=== PATIENT | female | born 1995 | race Hispanic/Latino ===

== ENCOUNTER 2019-09-27 10:23 | Emergency (ER) | payer OTHER, SELFPAY ==
[2019-09-27 10:49] VITALS: BP 105/52; PULSE 65; RESP 16; TEMP 36.8; O2SAT 99
--- NOTE | 2019-09-27 11:04 | ED.GENADULT ---
HPI - General Adult General Chief complaint: Wound/Laceration Stated complaint: tick bite History of Present Illness HPI narrative: Patient states she was bit by a tick last night her pulled it out but today is is red and swollen and it looks like there may a piece still in her . Patient states she did not want to go to the hosptial Related Data Allergies Allergy/AdvReac Type Severity Reaction Status Date / Time No Known Allergies Allergy Unverified 03/31/16 14:43 Review of Systems Review of Systems: Narrative: CONSTITUTIONAL: Denies fever, chills, or sweats. EYES: Denies visual changes, redness, or discharge. ENT: Denies rhinorrhea, congestion, sore throat, or otalgia. CARDIOVASCULAR:Denies chest pain, palpitations, or edema. RESPIRATORY: Denies cough or dyspnea. GASTROINTESTINAL: Denies abdominal pain, nausea, vomiting, or diarrhea. GENITOURINARY: Denies dysuria or hematuria. SKIN:[Denies rash or itching.tick bite right leg MUSCULOSKELETAL:Denies back pain, joint pain, or myalgia. NEUROLOGIC: Denies headache, numbness, or weakness. PSYCHIATRIC:Denies anxiety or depression PMFSH Comments At time as signature, I have reviewed and agree with nursing past medical, social, surgical and family history. Please see nursing chart for further information. There is no relevant family history pertinent to the presenting complaint. Exam Narrative: Exam Narrative: GENERAL:Well-appearing, well-nourished, and in no acute distress. HEAD:Normocephalic, atraumatic. EYES: PERRLA and EOMI. ENT: Nares clear, no rhinorrhea or epistaxis. Mucous membranes moist. NECK: Supple. CHEST: Clear to auscultation. No respiratory distress. HEART: Regular rate and rhythm. No murmur heard. Normal peripheral pulses. ABDOMEN: Soft, nontender, nondistended, normal active bowel sounds. EXTREMITIES: Normal range of motion. No edema. right calf area with red erythema area with a minute open area that is starting to get hard. SKIN: Warm, dry, no rash. NEURO: No focal deficits. Alert and oriented x3. Course Vital Signs Vital signs: Vital Signs Temperature 98.3 F 09/27/19 10:49 Pulse Rate 65 09/27/19 10:49 Respiratory Rate 16 09/27/19 10:49 Blood Pressure 105/52 L 09/27/19 10:49 Pulse Oximetry 99 09/27/19 10:49 Temperature 98.3 F 09/27/19 10:49 Pulse Rate 65 09/27/19 10:49 Respiratory Rate 16 09/27/19 10:49 Blood Pressure 105/52 L 09/27/19 10:49 Pulse Oximetry 99 09/27/19 10:49 Medical Decision Making Differential Diagnosis Differential Diagnosis: Tick bite, lyme disease, malaise and fatigue Vital Signs Vital Signs: Vital Signs Temperature 98.3 F 09/27/19 10:49 Pulse Rate 65 09/27/19 10:49 Respiratory Rate 16 09/27/19 10:49 Blood Pressure 105/52 L 09/27/19 10:49 Pulse Oximetry 99 09/27/19 10:49 Temperature 98.3 F 09/27/19 10:49 Pulse Rate 65 09/27/19 10:49 Respiratory Rate 16 09/27/19 10:49 Blood Pressure 105/52 L 09/27/19 10:49 Pulse Oximetry 99 09/27/19 10:49 Discharge Plan Discharge Clinical Impression: Tick bite Qualifiers: Encounter type: initial encounter Qualified Code(s): W57.XXXA - Bitten or stung by nonvenomous insect and other nonvenomous arthropods, initial encounter Patient Disposition: Home, Self-Care Condition: Stable Instructions: Antibiotic Form, Doxycycline (By mouth), Tick Bite (ED) Prescriptions: New doxycycline hyclate 100 mg capsule 100 mg PO BID 10 Days Qty: 20 RF: 0 Follow-up/Referrals: UNKNOWN,DOCTOR [Primary Care Provider] - Time of Disposition: 11:16
== END 2019-09-27 11:20 | disposition home or self-care (01) ==
PROVIDERS: Emergency Provider Nurse Practitioner Family
DX: S81.851A Open bite, right lower leg, initial encounter (principal); Z86.2 Personal history of diseases of the blood and blood-forming organs and certain disorders involving the immune mechanism; W57.XXXA Bitten or stung by nonvenomous insect and other nonvenomous arthropods, initial encounter
CPT/HCPCS: 99213; G0463

== ENCOUNTER 2020-08-06 10:27 | Outpatient (RCR) | payer SELFPAY ==
[2020-08-06 06:53] LABS: Rapid Plasma Reagin Non-Reactive (NonReactive)
== END 2020-11-01 23:59 | disposition home or self-care (01) ==
LOC: ANHLAB 10:27
PROVIDERS: Visit Provider Obstetrics & Gynecology
DX: Z32.01 Encounter for pregnancy test, result positive (principal)
CPT/HCPCS: 36415; 84702; 86592

== ENCOUNTER 2020-08-07 09:16 | Emergency (ER) | payer OTHER, SELFPAY ==
--- NOTE | ~2020-08-07 | US_ITS ---
EXAMINATION: US OB <=14 wk fetus w TV EXAM DATE: 08/07/2020 10:22 INDICATION: , right pelvic pain. 1st trimester. TECHNIQUE: Pelvic obstetrical transabdominal and transvaginal sonogram was performed by a technologi . There are multiple grayscale and Doppler images available for interpretation. There are no pamella ier studies of this gestation for comparison. FINDINGS: Uterus measures 8.4 x 5.0 x 5.7 cm. There is an intrauterine cystic structure probably gest ation sac given thick wall likely decidual reaction. Shape of the cystic component is abnormal, due t o another smaller contiguous cystic structure which could be an abnormal yolk sac or small subchorion ic hematoma. Poor prognostic indicators for this . No pole identified. Mean sac diamet er of 1 cm corresponds to estimated gestational age 5 weeks 4 days. Both ovaries were identified and are morphologically normal, the left probably having a small hemorrh agic cyst. No extra uterine identified. IMPRESSION: Abnormal appearing intrauterine gestation sac and yolk sac, poor prognostic indicators f or this . Consider 1-2 week follow-up ultrasound. Reviewed, dictated and finalized at location B. E SHOW SPECIALIST IMPRESSION: Abnormal appearing intrauterine gestation sac and yolk sac, poor p rognostic indicators for this . Consider 1-2 week follow-up ultrasound .
[2020-08-07 09:20] VITALS: BP 101/66; PULSE 64; RESP 16; TEMP 36.6; O2SAT 97
--- NOTE | 2020-08-07 09:41 | ED.ABDPAIN ---
HPI - Abdominal Pain General Chief Complaint: Abdominal Pain Stated Complaint: abd pain Time Seen by Provider: 08/07/20 09:32 History of Present Illness HPI narrative: Recently found out she was pregnat. Developed RLQ pain over the past few days. Seen at [facility] yesterday and had an US reportedly showing an IUP. Today the pain is worse. She also has back pain radiating down the side of her right leg. This is associated with tingling in the same distribution. She called her OB and they told her to come in . Related Data Home Medications Medication Instructions Recorded Confirmed No Home Medications 08/07/20 08/07/20 Allergies Allergy/AdvReac Type Severity Reaction Status Date / Time No Known Allergies Allergy Verified 08/07/20 09:31 Review of Systems Review of Systems: All systems reviewed & are unremarkable except as noted in HPI and below Constitutional: Constitutional: Denies chills and Denies fever(s) Cardiovascular: Cardiovascular: Denies chest pain Respiratory: Respiratory: Denies dyspnea Gastrointestinal: Gastrointestinal: Reports abdominal pain, Denies constipation, Denies diarrhea, Denies nausea and Denies vomiting Genitourinary: Genitourinary: Denies abnormal vaginal bleeding, Denies hematuria, Denies dysuria and Denies vaginal discharge Neurologic: Denies dizziness, Reports numbness and Denies weakness COUNTS INCLUDE 234 BEDS AT THE [facility] Past Medical History Medical History (Updated 08/07/20 @ 18:39 by Kendall Parks MD) Healthy female adult Social History Social History (Updated 08/07/20 @ 18:39 by Kendall Parks MD) Smoking status: Never smoker Exam Const: General: healthy appearing, no acute distress and alert Orientation/consciousness: patient oriented x3 HENMT: Head: normal to inspection Neck: Neck: normal visual inspection and no lymphadenopathy Chest: Chest palpation & inspection: no tenderness Resp: Effort & Inspection: normal respiratory effort Auscultation: clear to auscultation bilaterally, no rales, no rhonchi and no wheezes Cardio: Jugular venous distension: no JVD Rate: regular rate Rhythm: regular rhythm Heart sounds: no murmurs GI: Inspection: non-distended GI Palp: Yes Soft to palpation and Yes Tenderness to palpation present (GI) (RLQ) Skin: General skin exam: normal color Neuro: General: patient oriented x3, moves all extremities, no focal motor deficits and CN's II-XI intact bilaterally Speech: normal speech Gait exam (Neuro): Normal gait present Extrem: General: no edema Psych: Appearance: well kempt Affect: normal affect Course Vital Signs Vital signs: Vital Signs Temperature 36.6 C 08/07/20 09:20 Pulse Rate 64 08/07/20 09:20 Respiratory Rate 16 08/07/20 09:20 Blood Pressure 101/66 08/07/20 09:20 Pulse Oximetry 97 08/07/20 09:20 Temperature 36.6 C 08/07/20 09:20 Pulse Rate 100 08/07/20 11:30 Respiratory Rate 16 08/07/20 11:30 Blood Pressure 110/72 08/07/20 11:30 Pulse Oximetry 100 08/07/20 11:30 MDM - Abdominal Pain MDM Narrative Medical decision making narrative: Abnormal appearance of IUP. Case discussed with Dr. Carbajal. He will see her in clinic today. Differential Diagnosis Differential diagnosis: Likely other (ruptured cyst, sciatica, ectopic) Medical Records Attestation: I reviewed the patient's medical records. Lab Data Attestation: I reviewed the patient's lab results. Result diagrams: 08/07/20 09:45 08/07/20 09:45 Labs: Lab Results 08/07/20 08/07/20 08/07/20 Range/Units 09:34 09:45 09:45 WBC 6.7 (4.5-10.0) K/mm3 RBC 4.72 (4.2-5.4) M/mm3 Hgb 13.6 (12.0-15.0) g/dL Hct 40.6 (37.0-47.0) % MCV 86.0 (80-100) fl MCH 28.8 (26-34) pg MCHC 33.5 (32-36) g/dl RDW 12.9 (11.5-14.5) % Plt Count 245 (150-375) k/mm3 MPV 11.3 H (7.4-10.4) fl Immature Gran % (Auto) 0.1 (0-0.5) % Neut % (Auto) 66.2 (45.5-73.1
[2020-08-07 09:59] LABS: Add Urine Microscopic? YES; Appearance Urine Clear (Clear); Bacteria Urine Trace /hpf; Bilirubin Urine Negative (Negative); Blood Urine Negative (Negative); Color Urine Yellow (Yellow); Glucose Urine UA Negative (Negative); Ketones Urine Negative (Negative); Leukocyte Esterase Ur Trace LEU/UL (Negative); Mucus Urine Rare /lpf; Nitrate Urine Negative (Negative); Protein Urine Negative (Negative); RBC Urine 0-2 /hpf (0-2); Specific Grav Ur 1.025 (1.001-1.035); Squamous Epithelial Cell Urine Many /hpf (Few); Urobilinogen Urine Negative mg/dL (<2.0); WBC Urine 0-3 /hpf
[2020-08-07 10:01] LABS: Basophils Percent Auto 0.4 % (0.2-1.2); Eosinophils Percent Auto 0.4 % (0-4.4); Hematocrit 40.6 % (37.0-47.0); Hemoglobin 13.6 g/dL (12.0-15.0); Immature Granulocyte Absolute 0.01 K/mm3 (0.00-0.031); Immature Granulocyte Percent A 0.1 % (0-0.5); Lymphocytes Absolute Auto 1.78 K/mm3 (0.9-3.2); Lymphocytes Percent Auto 26.5 % (18.3-44.2); Mean Corpuscular HGB Conc 33.5 g/dl (32-36); Mean Corpuscular Hemoglobin 28.8 pg (26-34); Mean Platelet Volume 11.3 fl (7.4-10.4); Monocytes Absolute Auto 0.4 K/mm3 (0.1-0.6); Monocytes Percent Auto 6.4 % (2.6-8.5); Neutrophils Absolute Auto 4.4 K/mm3 (1.3-6.7); Neutrophils Percent Auto 66.2 % (45.5-73.1); Platelet Count Result 245 k/mm3 (150-375); Red Blood Count 4.72 M/mm3 (4.2-5.4); Red Cell Distribution Width 12.9 % (11.5-14.5); White Blood Count 6.7 K/mm3 (4.5-10.0)
[2020-08-07 10:14] LABS: Alanine Aminotransferase 15 U/L (4-35); Albumin Level 4.3 g/dL (3.5-5.1); Alkaline Phosphatase 50 U/L (38-126); Anion Gap 8 mmol/L (8-16); Aspartate Amino Transferase 24 U/L (14-36); Bilirubin,Total 0.3 mg/dL (0.2-1.3); Blood Urea Nitrogen 8 mg/dL (7-17); Calcium 8.7 mg/dL (8.4-10.2); Carbon Dioxide 25 mmol/L (22-30); Chloride 103 mmol/L (98-107); Estimated Glomerular Filt Rate > 60; Glucose 93 mg/dL (65-105); Lipase 79 U/L (23-300); Potassium 3.7 mmol/L (3.4-5.0); Sodium 136 mmol/L (137-145)
[2020-08-07 11:30] VITALS: BP 110/72; PULSE 100; RESP 16; O2SAT 100
== END 2020-08-07 11:30 | disposition home or self-care (01) ==
PROVIDERS: Emergency Provider Emergency Medicine
DX: O26.891 Other specified pregnancy related conditions, first trimester (principal); R10.31 Right lower quadrant pain; O99.891 Other specified diseases and conditions complicating pregnancy; M54.31 Sciatica, right side; Z3A.01 Less than 8 weeks gestation of pregnancy
CPT/HCPCS: 36415; 76801; 76817; 80053; 81001; 83690; 84702; 85025; 99284

== ENCOUNTER → 2020-09-05 02:08 | Outpatient (CLI) | payer OTHER, SELFPAY ==
[2020-09-05 20:23] LABS: SARS-CoV-2 RNA PCR Negative
== END ==
PROVIDERS: Visit Provider Obstetrics & Gynecology
DX: Z01.812 Encounter for preprocedural laboratory examination (principal); Z20.822 Contact with and (suspected) exposure to COVID-19
CPT/HCPCS: C9803; U0003; U0005

== ENCOUNTER 2020-09-08 01:55 | Day surgery (SDC) | payer OTHER, SELFPAY ==
[2020-09-04 09:49] VITALS: BMI 22.2
[2020-09-08 06:54] VITALS: BP 92/53; PULSE 56; RESP 18; TEMP 36.7; O2SAT 100
[2020-09-08] MEDS: ACETAMINOPHEN 500 MG TABLET 1000 MG PO (07:00)
--- NOTE | 2020-09-08 07:03 | WPDANESEPPF ---
Anes - Initial Pre Proc Eval Procedure: Operation Date: 09/08/20 07:30 Proposed Procedures p Suction Dilatation and Curettage - Carol Carbajal MD Date/Time: 09/08/20 07:04 Surgeon: Carol Carbajal MD Pre Op Diagnosis: missed AB Patient Data Age: 25 Gender: F Height: 4 ft 11 in Weight: 50.5 kg Last Vital Signs Temp 98.1 F 09/08/20 06:54 Pulse 56 L 09/08/20 06:54 Resp 18 09/08/20 06:54 BP 92/53 L 09/08/20 06:54 Pulse Ox 100 09/08/20 06:54 Allergies Allergy/AdvReac Type Severity Reaction Status Date / Time No Known Allergies Allergy Verified 09/08/20 06:59 Home Medications Medication Instructions Recorded Confirmed Type ferrous sulfate [iron] 325 mg PO DAILY 09/04/20 09/08/20 History Patient hx anesthesia problems: none Family hx anesthesia problems: none [facility] Past Medical History Medical History (Updated 08/08/20 @ 00:00 by Pippa Reese) Healthy female adult Social History Social History (Updated 08/07/20 @ 18:39 by Kendall Parks MD) Smoking status: Never smoker Alcohol intake: never Substance use: never Substance use type: does not use Living arrangements: with family Spiritual care concerns: No Anes - Eval Final PreProcedure Day of Procedure 09/08/20 07:04 Patient weight: normal Heart: regular rate and rhythm Lungs: clear to auscultation Airway: Mallampati scale class II Neurological: alert and oriented Last oral intake: >/= 8 hours ASA classification: I Emergent: no Anesthetic plan: proceed Anesthesia type and monitoring: general GIVS and standard monitoring Informed Consent: The patient's anesthetic plan and its attendant risks and benefits were discussed with the patient/family/POA. Questions were solicited and answers provided to the satisfaction of the patient/family/POA.
[2020-09-08] MEDS: LACTATED RINGERS 1,000 ML 30 ML IV CONT (07:19)
--- NOTE | 2020-09-08 07:24 | WPDHPUPDATE1 ---
History and Physical Update Update Date/Time: 09/08/20 07:24 History and Physical has been reviewed, including an updated exam of the patient. There are NO changes in the patient's condition. Risks, benefits, and alternatives have been discussed and questions answered. Patient agrees to proceed with procedure.
[2020-09-08] MEDS: KETOROLAC 30 MG/ML VIAL (*BKC) IV PUSH (07:48)
[2020-09-08 07:53] VITALS: BP 101/66; PULSE 61; RESP 12; O2SAT 99
--- NOTE | 2020-09-08 07:53 | P.OP_ITS ---
Procedure Note - Detailed Date of procedure: 09/08/20 Pre-op diagnosis: missed AB Post-op diagnosis: same Procedure performed: Suction D&C Description of procedure: The patient was taken the operating room. She has prepped and draped in dorsal lithotomy position after induction of mac anesthesia. A speculum was placed in the vagina. The cervix was grasped with a tenaculum. The cervix was injected at 3 and 9:00 a.m. with 1% lidocaine. The cervix was dilated up to 8 mm using Parsons dilators. An 8 curved plastic suction curette was then applied to the intrauterine cavity. All of the surfaces in the intrauterine cavity were curettage under VAC. A sharp medium-size curette was then used to curettage all the surfaces to confirmed the removal of all the products conception. When all surfaces for bleed to be clean the curette was r emoved. The suction curette was then reapplied to remove all the debris. The procedure was terminated. The tenaculum was removed. The speculum was removed. The patient tolerated the procedure well. She was taken recovery room in stable condition. Anesthesia: MAC Surgeon: Carol Carbajal MD Estimated blood loss (mL): 25 Drains: No Packing: No Pathology: yes Complications: No immediate complications Condition: stable Disposition: PACU Findings: Normal vulva vagina and cervix. The moderate amounts of products conception. 8 cm uterus.
[2020-09-08 08:15] VITALS: BP 100/70; PULSE 68; RESP 20
--- NOTE | 2020-09-08 08:23 | SUR.PHASEII ---
0823 - pt's blood type noted. A positive
[2020-09-08 08:45] VITALS: BP 100/65; PULSE 50; RESP 20
== END 2020-09-08 08:50 | disposition home or self-care (01) ==
PROVIDERS: Visit Provider Obstetrics & Gynecology
PROC: (CPT 59820; principal; 2020-09-08 07:30)
DX: O02.1 Missed abortion (principal)
CPT/HCPCS: 59820; 36415; 85461; 88305; A9270; J1885; J2250; J2704; J7120

== ENCOUNTER 2020-09-17 13:45 | Emergency (ER) | payer OTHER, SELFPAY ==
--- NOTE | ~2020-09-17 | US_ITS ---
EXAMINATION: US venous doppler UE EXAM DATE: 09/17/2020 15:23 INDICATION: Left upper extremity swelling and bruising. TECHNIQUE: Multiple grayscale, color flow, Doppler sonographic images of the left upper extremity vei ns obtained by technologist. Compression was performed where able. There is no prior study for lynda jessica. FINDINGS: Left upper extremity: Jugular vein: ------------> Normal. Subclavian vein: --------> Normal. Axillary vein:------------> Normal. Brachial vein:-----------> Normal. Basilic vein: ------------> Normal. Cephalic vein: ----------> Normal. Radial vein: ------------> Normal. Ulnar vein: > Normal. IMPRESSION: No deep venous thrombosis of the left upper extremity. Reviewed, dictated and finalized at location A.
--- NOTE | ~2020-09-17 | XR_ITS ---
EXAMINATION: XR chest 1V portable EXAM DATE: 09/17/2020 16:06 INDICATION: IV site discolored, left arm and left-sided face numbness for a week. TECHNIQUE: Portable AP frontal chest x-ray was obtained. Comparison is made to prior examination from 05/21/2015. FINDINGS: The lungs are clear. There are no pleural effusions. Cardiomediastinal silhouette is norm al. There is no pneumothorax suspected. The bones and soft tissues are unremarkable. IMPRESSION: Normal chest x-ray exam. Reviewed, dictated and finalized at location A. IMPRESSION: Normal chest x-ray exam.
--- NOTE | ~2020-09-17 | CT_ITS ---
EXAMINATION: CT brain wo con INDICATION: Headache, facial numbness, dizziness COMPARISON: 05/21/2015 TECHNIQUE: Standard unenhanced head CT. The dose-length product (DLP) was 605.33 mGy-cm. The mA was a djusted according to patient size. Iterative reconstruction technique was employed. FINDINGS: There is no intracranial hemorrhage, acute infarction, or abnormal mass lesion. The ventric les are normal. There is no abnormal mass effect or midline shift. The julio-white matter differentiat ion is normal. The basal cisterns are patent. The orbits are normal. The paranasal sinuses, mastoids and calvarium are normal. IMPRESSION: 1. No acute intracranial abnormality. Reviewed, dictated and finalized at location A.
[2020-09-17 14:06] VITALS: BP 101/76; PULSE 62; RESP 18; TEMP 36.9; O2SAT 100
--- NOTE | 2020-09-17 14:48 | ECG_ITS ---
Measurements Intervals [place] Rate: 53 P: 45 IA: 140 QRS: 35 QRSD: 77 T: 17 QT: 405 QTc: 383 Interpretive Statements SINUS BRADYCARDIA BASELINE ARTIFACT- III BORDERLINE ECG Electronically Signed On 09-17-2020 15:40:51 CDT by Pedro Madrid D.O.
--- NOTE | 2020-09-17 15:35 | PC.NURSE ---
Pt to imaging at this time
--- NOTE | 2020-09-17 15:35 | ED.GENADULT ---
HPI - General Adult General Chief complaint: Skin/Abscess/Foreign Body Stated complaint: IV site and facial swelling after DNC Time Seen by Provider: 09/17/20 13:47 Source: patient Mode of arrival: ambulatory Limitations: no limitations History of Present Illness HPI narrative: Patient is a 25-year-old female who presents to emergency department for evaluation of left arm bruising where she had had an IV placed several days earlier for a D&C performed at [facility]. Patient on arrival also notes today she felt heaviness in the left side of the face. Patient on arrival is in no distress denies vaginal discharge bleeding fever chills chest pain. Patient notes she has had some mild dyspnea shortness of breath over the course of the last day. Patient denies URI symptoms. On arrival patient does not appear uncomfortable or in distress and is resting comfortably in the room Related Data Allergies Allergy/AdvReac Type Severity Reaction Status Date / Time No Known Allergies Allergy Verified 09/08/20 06:59 Review of Systems Review of Systems: All systems reviewed & are unremarkable except as noted in HPI and below PMFSH Past Medical History Medical History (Updated 09/17/20 @ 17:10 by Elmer Santana PA-C) Healthy female adult Surgical History Surgical History (Updated 09/17/20 @ 15:37 by Elmer Santana PA-C) H/O dilation and curettage Social History Social History Smoking status: Never smoker Alcohol intake: never Substance use: never Substance use type: does not use Spiritual care concerns: No Exam Narrative: Exam Narrative: GENERAL: Well-appearing, well-nourished, and in no acute distress. HEAD: Normocephalic, atraumatic. EYES: PERRLA and EOMI. ENT: Nares clear, no rhinorrhea or epistaxis. Mucous membranes moist. NECK: Supple. No adenopathy or masses. No carotid bruits or JVD CHEST: Clear to auscultation. No respiratory distress. No wheezes rales or rhonchi HEART: Regular rate and rhythm. No murmur heard. Normal peripheral pulses. ABDOMEN: Soft, nontender, nondistended, EXTREMITIES: Normal range of motion. No edema. SKIN: Warm, dry, no rash. NEURO: No focal deficits. Alert and oriented x3. Cranial nerves II through XII grossly intact. Normal speech and gait. Cerebellar intact PSYCH: Normal mood and affect. Course Course Emergency Course: Patient evaluated in the emergency department for multiple complaints none of which have resulted in anything significant patient will be discharged home at this time hemodynamically stable ABCs and vital signs intact and stable patient will be referred back to her specialist and primary care for further evaluation of her complaints patient was made aware of the findings in her evaluation and agrees to follow-up as instructed and was also given a plan to return and provided with reasons to return and agrees with this Vital Signs Vital signs: Vital Signs Temperature 98.4 F 09/17/20 14:06 Pulse Rate 62 09/17/20 14:06 Respiratory Rate 18 09/17/20 14:06 Blood Pressure 101/76 09/17/20 14:06 Pulse Oximetry 100 09/17/20 14:06 Temperature 98.4 F 09/17/20 14:06 Pulse Rate 77 09/17/20 16:01 Respiratory Rate 21 H 09/17/20 16:01 Blood Pressure 111/71 09/17/20 16:01 Pulse Oximetry 100 09/17/20 16:01 Medical Decision Making Vital Signs Vital Signs: Vital Signs Temperature 98.4 F 09/17/20 14:06 Pulse Rate 62 09/17/20 14:06 Respiratory Rate 18 09/17/20 14:06 Blood Pressure 101/76 09/17/20 14:06 Pulse Oximetry 100 09/17/20 14:06 Temperature 98.4 F 09/17/20 14:06 Pulse Rate 77 09/17/20 16:01 Respiratory Rate 21 H 09/17/20 16:01 Blood Pressure 111/71 09/17/20 16:01 Pulse Oximetry 100 09/17/20 16:01 Lab Data Result diagrams: 09/17/20 15:41 09/17/20 15:41 Labs: Lab Results 09/17/20 09/17/20 0
[2020-09-17 15:50] LABS: Add Urine Microscopic? YES; Appearance Urine Cloudy (Clear); Bilirubin Urine Negative (Negative); Blood Urine Negative (Negative); Color Urine Yellow (Yellow); Glucose Urine UA Negative (Negative); Ketones Urine Negative (Negative); Leukocyte Esterase Ur Negative LEU/UL (Negative); Mucus Urine Rare /lpf; Nitrate Urine Negative (Negative); Protein Urine Negative (Negative); RBC Urine 0-2 /hpf (0-2); Specific Grav Ur 1.017 (1.001-1.035); Squamous Epithelial Cell Urine Rare /hpf (Few); Urobilinogen Urine Negative mg/dL (<2.0); WBC Urine 0-3 /hpf
[2020-09-17 16:01] VITALS: BP 111/71; PULSE 77; RESP 21; O2SAT 100
[2020-09-17 16:14] LABS: Basophils Percent Auto 0.5 % (0.2-1.2); Eosinophils Absolute Auto 0.1 K/mm3 (0-0.3); Hematocrit 42.9 % (37.0-47.0); Hemoglobin 14.5 g/dL (12.0-15.0); Immature Granulocyte Absolute 0.02 K/mm3 (0.00-0.031); Immature Granulocyte Percent A 0.2 % (0-0.5); Lymphocytes Absolute Auto 2.09 K/mm3 (0.9-3.2); Lymphocytes Percent Auto 25.8 % (18.3-44.2); Mean Corpuscular HGB Conc 33.8 g/dl (32-36); Mean Corpuscular Hemoglobin 29.1 pg (26-34); Mean Corpuscular Volume 86.1 fl (80-100); Mean Platelet Volume 11.7 fl (7.4-10.4); Monocytes Absolute Auto 0.4 K/mm3 (0.1-0.6); Monocytes Percent Auto 5.3 % (2.6-8.5); Neutrophils Absolute Auto 5.4 K/mm3 (1.3-6.7); Neutrophils Percent Auto 67.2 % (45.5-73.1); Platelet Count Result 243 k/mm3 (150-375); Red Blood Count 4.98 M/mm3 (4.2-5.4); White Blood Count 8.1 K/mm3 (4.5-10.0)
[2020-09-17 16:17] VITALS: BP 107/86; PULSE 64; RESP 19; O2SAT 100
[2020-09-17 16:26] LABS: INR 0.9; Prothrombin Time 12.8 Seconds (11.1-14.7)
[2020-09-17 16:27] LABS: Partial Thromboplastin Time 26.3 SECONDS (22.3-36.8)
[2020-09-17 16:30] LABS: Anion Gap 10 mmol/L (8-16); Blood Urea Nitrogen 14 mg/dL (7-17); Calcium 9.5 mg/dL (8.4-10.2); Carbon Dioxide 26 mmol/L (22-30); Chloride 102 mmol/L (98-107); Estimated Glomerular Filt Rate > 60; Glucose 78 mg/dL (65-105); Potassium 3.9 mmol/L (3.4-5.0); Sodium 138 mmol/L (137-145)
[2020-09-17 16:42] LABS: Troponin I < 0.012 ng/mL (0.000-0.034)
[2020-09-17 17:01] VITALS: BP 110/77; PULSE 61; RESP 18; O2SAT 100
[2020-09-17 17:15] VITALS: BP 101/81; PULSE 65; RESP 19; O2SAT 92
[2020-09-17 17:18] VITALS: BP 101/81; PULSE 77; RESP 18; O2SAT 95
== END 2020-09-17 17:18 | disposition home or self-care (01) ==
PROVIDERS: Emergency Medicine Emergency Medical Services; Emergency Provider Emergency Medicine; PCP Obstetrics & Gynecology
DX: R06.02 Shortness of breath (principal); M79.602 Pain in left arm; R51.9 Headache, unspecified; R00.1 Bradycardia, unspecified; Z98.890 Other specified postprocedural states
CPT/HCPCS: 36415; 70450; 71045; 80048; 81001; 81025; 84484; 85025; 85610; 85730; 93005; 93971; 99284

== ENCOUNTER 2020-12-29 10:18 | Outpatient (CLI) | payer OTHER, SELFPAY ==
[2020-12-29 11:20] LABS: Beta HCG Quantitative < 2.39 mIU/ML
== END 2020-12-29 10:19 | disposition home or self-care (01) ==
LOC: ANHLAB 10:23
PROVIDERS: PCP Obstetrics & Gynecology; Visit Provider Obstetrics & Gynecology
DX: N91.2 Amenorrhea, unspecified (principal)
CPT/HCPCS: 36415; 84702

== ENCOUNTER 2021-05-12 12:54 | Outpatient (CLI) | payer OTHER, SELFPAY | END 2021-05-12 12:55 | disposition home or self-care (01) | PROVIDERS: PCP Obstetrics & Gynecology; Visit Provider Obstetrics & Gynecology | DX: Z32.01 Encounter for pregnancy test, result positive (principal); Z3A.00 Weeks of gestation of pregnancy not specified | CPT/HCPCS: 36415; 84702 ==

== ENCOUNTER 2021-05-21 11:28 | Emergency (ER) | payer OTHER, SELFPAY ==
[2021-05-21] VITALS (7 sets, daily range): BP systolic 86–111; BP diastolic 52–67; PULSE 62–101; RESP 16–18; TEMP 36.4–36.6; O2SAT 98–100
--- NOTE | ~2021-05-21 | US_ITS ---
EXAMINATION: US OB <=14 wk fetus w TV DATE: 05/21/2021 14:00 INDICATION: Ulceration of bleeding during first trimester TECHNIQUE: Real-time pelvic ultrasound utilizing both a transvaginal and transabdominal probe was pe rformed. The interpreting radiologist was not present for the study. COMPARISON: None. FINDINGS: The uterus measures 9.0 x 5.5 x 5.0 cm. There is a 2.3 x 2.5 x 0.8 cm endometrial fluid collection a t the funduswithout evidence of yolk sac or pole. The right ovary measures 2.7 x 2.9 x 1.9 cm. The left ovary measures 1.9 x 1.9 x 1.7 cm. After flow w ith arterial waveforms identified in both ovaries. No abnormal adnexal masses identified. There is no free fluid in the pelvis. IMPRESSION: 1. 2.3 x 2.5 x 0.8 cm endometrial fluid collection without evident yolk sac or pole. Differenti al remains early , failed or less likely ectopic . Recommend follow-up wi th serial beta-hCG levels with repeat imaging as clinically indicated. Reviewed, dictated and finalized at location B. N RESOURCES OPERATIONS DIRECTOR IMPRESSION: 1. 2.3 x 2.5 x 0.8 cm endometrial fluid collection without evident yolk sac or pole. Differential remains early , failed or less like ly ectopic . Recommend follow-up with serial beta-hCG levels with repe at imaging as clinically indicated.
--- NOTE | 2021-05-21 13:04 | PC.NURSE ---
Pt urinating at this time.
[2021-05-21 13:21] LABS: Add Urine Microscopic? YES; Appearance Urine Clear (Clear); Bilirubin Urine Negative (Negative); Blood Urine Negative (Negative); Color Urine Yellow (Yellow); Glucose Urine UA Negative (Negative); Ketones Urine Trace mg/dL (Negative); Leukocyte Esterase Ur Negative LEU/UL (Negative); Mucus Urine Rare /lpf; Nitrate Urine Negative (Negative); Protein Urine Negative (Negative); RBC Urine 0-2 /hpf (0-2); Squamous Epithelial Cell Urine Moderate /hpf (Few); Urobilinogen Urine Negative mg/dL (<2.0); WBC Urine 0-3 /hpf
--- NOTE | 2021-05-21 13:32 | ED.FEMALEGU ---
HPI - Female Genitourinary General Chief complaint: Vaginal Bleeding Stated complaint: vag bleed in Time Seen by Provider: 05/21/21 12:54 Source: patient Mode of arrival: ambulatory Limitations: no limitations History of Present Illness HPI Narrative: This is a 25-year-old , about 6 weeks that presents to the emergency department for vaginal bleeding. Associated with pelvic cramping. Reports she has had ultrasound in the last couple of days that showed a yolk sac, but no pole. Reports her bleeding worsened today and was associated with cramping which prompted her to be seen again. Her OB is Dr. Carbajal. Denies fever, vomiting, or dysuria. Related Data Allergies Allergy/AdvReac Type Severity Reaction Status Date / Time No Known Allergies Allergy Verified 05/21/21 12:56 Review of Systems Review of Systems: CONSTITUTIONAL: Denies fever GASTROINTESTINAL: Denies vomiting GENITOURINARY: Denies dysuria or hematuria. All systems reviewed & are unremarkable except as noted in HPI and below PMFSH Past Medical History Medical History (Updated 05/21/21 @ 18:35 by Namita Carty PA-C) Healthy female adult Surgical History Surgical History (System 02/10/21 @ 16:02 by Dianelys Begum) H/O dilation and curettage Social History Social History (System 02/10/21 @ 16:02 by Dianelys Begum) Smoking status: Never smoker Alcohol intake: never Substance use: never Substance use type: does not use Spiritual care concerns: No Exam Narrative: GENERAL: Well-appearing, well-nourished, and in no acute distress. HEAD: Normocephalic, atraumatic. EYES: EOMI. CHEST: Clear to auscultation. No respiratory distress. No wheezes rales or rhonchi HEART: Regular rate and rhythm. No murmur heard. Normal peripheral pulses. ABDOMEN: Soft, nontender, nondistended, normal active bowel sounds. No CVA tenderness EXTREMITIES: Normal range of motion. No edema. SKIN: Warm, dry, no rash. NEURO: No focal deficits. Alert and oriented x3. PSYCH: Normal mood and affect Course Consultations Consultation #1: Spoke with Dr. Carbajal about patient and work-up who will follow up in clinic. Date: 05/21/21 Vital Signs Vital signs: Vital Signs Temperature 97.6 F 05/21/21 11:57 Pulse Rate 80 05/21/21 11:57 Respiratory Rate 16 05/21/21 11:57 Blood Pressure 111/58 L 05/21/21 11:57 Pulse Oximetry 98 05/21/21 11:57 Temperature 97.9 F 05/21/21 18:19 Pulse Rate 71 05/21/21 18:19 Respiratory Rate 18 05/21/21 18:19 Blood Pressure 94/59 L 05/21/21 18:19 Pulse Oximetry 99 05/21/21 18:19 MDM - Female Genitourinary MDM Narrative Medical decision making narrative: Patient presents to the emergency department for vaginal bleeding, about 6 weeks by LMP. Patient orthostatic upon arrival, this improved with 2L IV fluid administration. Patient is no longer lightheaded. Hemoglobin is 12.4. Metabolic panel without concerning findings. UA without evidence of infection. Patient is A+. No concerning bleeding noted on exam. Obstetric ultrasound shows a 2.3 x 2.5 x 0.8 cm endometrial fluid collection without evident yolk sac or pole. Recommend follow-up with serial beta hCG and imaging. No abnormal adnexal masses. No free fluid in the pelvis. Spoke with Dr. Carbajal about patient and work-up who will follow up in clinic. Patient is stable and felt appropriate for further outpatient evaluation. She was given warnings to return to the ER Lab Data Attestation: I reviewed the patient's lab results. Result diagrams: 05/21/21 13:22 05/21/21 13:22 Labs: Lab Results 05/21/21 05/21/21 05/21/21 Range/Units 13:09 13:22 13:22 WBC 7.7 (4.5-10.0) K/mm3 RBC 4.21 (4.2-5.4) M/mm3 Hgb 12.4 (12.0-15.0) g/dL Hct 36.6 L (37.0-47.0) % MCV 86.9 (80-100) fl MCH 29.5 (26-34) pg MCHC 33.9 (32-36) g/dl RDW 13.2 (11.5-14.5) % Plt Co
[2021-05-21 13:33] LABS: Basophils Percent Auto 0.4 % (0.2-1.2); Eosinophils Percent Auto 0.5 % (0-4.4); Hematocrit 36.6 % (37.0-47.0); Hemoglobin 12.4 g/dL (12.0-15.0); Immature Granulocyte Absolute 0.03 K/mm3 (0.00-0.031); Immature Granulocyte Percent A 0.4 % (0-0.5); Lymphocytes Percent Auto 20.7 % (18.3-44.2); Mean Corpuscular HGB Conc 33.9 g/dl (32-36); Mean Corpuscular Hemoglobin 29.5 pg (26-34); Mean Corpuscular Volume 86.9 fl (80-100); Monocytes Absolute Auto 0.4 K/mm3 (0.1-0.6); Monocytes Percent Auto 4.7 % (2.6-8.5); Neutrophils Absolute Auto 5.7 K/mm3 (1.3-6.7); Neutrophils Percent Auto 73.3 % (45.5-73.1); Platelet Count Result 221 k/mm3 (150-375); Red Blood Count 4.21 M/mm3 (4.2-5.4); Red Cell Distribution Width 13.2 % (11.5-14.5); White Blood Count 7.7 K/mm3 (4.5-10.0)
--- NOTE | 2021-05-21 13:37 | PC.NURSE ---
[facility]
[2021-05-21 13:44] LABS: Prothrombin Time 12.9 Seconds (11.1-14.7)
[2021-05-21 13:45] LABS: Alanine Aminotransferase 17 U/L (4-35); Albumin Level 4.4 g/dL (3.5-5.1); Alkaline Phosphatase 49 U/L (38-126); Anion Gap 9 mmol/L (8-16); Aspartate Amino Transferase 23 U/L (14-36); Bilirubin,Total 0.6 mg/dL (0.2-1.3); Blood Urea Nitrogen 10 mg/dL (7-17); Calcium 9.2 mg/dL (8.4-10.2); Carbon Dioxide 24 mmol/L (22-30); Chloride 101 mmol/L (98-107); Estimated Glomerular Filt Rate > 60; Glucose 116 mg/dL (65-110); Partial Thromboplastin Time 25.3 SECONDS (22.3-36.8); Potassium 3.4 mmol/L (3.4-5.0); Sodium 134 mmol/L (137-145)
[2021-05-21] MEDS: SODIUM CHLORIDE 0.9% IV 1,000 ML 999 ML IV CONT ×2 (14:16→16:06)
--- NOTE | 2021-05-21 14:54 | PC.NURSE ---
Clarified with blood bank and SARAH Breaux. No need for Rhogam at this time. Blood bank to cancel order.
== END 2021-05-21 18:59 | disposition home or self-care (01) ==
PROVIDERS: Physician Assistant; Emergency Provider Emergency Medicine
DX: O20.0 Threatened abortion (principal); Z3A.01 Less than 8 weeks gestation of pregnancy
CPT/HCPCS: 36415; 76801; 76817; 80053; 81001; 81025; 84702; 85025; 85461; 85610; 85730; 96360; 96361; 99284; J7030

== ENCOUNTER 2021-05-24 16:56 | Outpatient (RCR) | payer OTHER, SELFPAY | END 2021-08-12 23:59 | disposition home or self-care (01) | LOC: ANHLAB 16:56 | PROVIDERS: PCP Obstetrics & Gynecology; Visit Provider Obstetrics & Gynecology | DX: Z32.01 Encounter for pregnancy test, result positive (principal) | CPT/HCPCS: 36415; 84702 ==

== ENCOUNTER 2021-05-24 16:59 | Outpatient (CLI) | payer OTHER, SELFPAY | END 2021-05-24 17:00 | disposition home or self-care (01) | PROVIDERS: Visit Provider Obstetrics & Gynecology | DX: O20.0 Threatened abortion (principal); Z3A.00 Weeks of gestation of pregnancy not specified | CPT/HCPCS: 36415; 84702 ==

== ENCOUNTER 2021-07-22 10:49 | Emergency (ER) | payer OTHER, SELFPAY ==
--- NOTE | ~2021-07-22 | US_ITS ---
EXAMINATION: US right upper quadrant EXAM DATE: 07/22/2021 14:00 INDICATION: RUQ pain . TECHNIQUE: Multiple grayscale and Doppler images of the abdomen right upper quadrant were obtained (b y a technologist who performed the scan) and subsequently reviewed. Comparison is made to prior exami nation from 05/21/2021. FINDINGS: The pancreatic head and body are normal in appearance. The pancreatic tail is not visualized. The l iver has normal echogenicity and contour. There are no focal liver lesions identified. There is no evidence of intrahepatic biliary duct dilation. Portal venous flow was seen in the hepatopedal, nor mal direction and has normal Doppler waveform. No right-sided hydronephrosis. Common bile duct measures 3 mm, which is normal. The gallbladder wall is normal in thickness, with ex pected amount of distention. No sonographic evidence of pericholecystic fluid. There is no cholelit hiases. Technologist performing exam reports patient did not demonstrate sonographic Lund's sign. Please note that this sign is less reliable in patients who have received pain medication. IMPRESSION: 1. Unremarkable abdominal ultrasound exam. Reviewed, dictated and finalized at location B. MAKER
--- NOTE | ~2021-07-22 | US_ITS ---
EXAMINATION: US OB limited EXAM DATE: 07/22/2021 14:01 INDICATION: Vaginal spotting. 2nd trimester. TECHNIQUE: Pelvic obstetrical transabdominal sonogram was performed by a technologist. There are mu ltiple grayscale and Doppler images available for interpretation. There are no earlier studies of th is gestation for comparison. FINDINGS: There is a single fetus identified in breech presentation with a heart rate of 136 beats pe r minute. The placenta is located in the posterior previa position, margin appears to be covering the internal cervical os. There is no sonographic evidence of retroplacental hemorrhage identified. IMPRESSION: 1. Placental previa. 2. Single fetus in breech presentation with heart rate 136 beats per minute. Reviewed, dictated and finalized at location B. IN[employer]
[2021-07-22 11:06] VITALS: BP 94/61; PULSE 82; RESP 16; TEMP 35.7; O2SAT 100
[2021-07-22 11:45] VITALS: PULSE 63; RESP 22; O2SAT 99
[2021-07-22 11:52] VITALS: BP 95/58; PULSE 65; RESP 19; O2SAT 99
[2021-07-22 11:58] LABS: Basophils Percent Auto 0.3 % (0.2-1.2); Eosinophils Percent Auto 0.3 % (0-4.4); Hematocrit 36.6 % (37.0-47.0); Hemoglobin 12.3 g/dL (12.0-15.0); Immature Granulocyte Absolute 0.02 K/mm3 (0.00-0.031); Immature Granulocyte Percent A 0.3 % (0-0.5); Lymphocytes Absolute Auto 1.16 K/mm3 (0.9-3.2); Lymphocytes Percent Auto 17.4 % (18.3-44.2); Mean Corpuscular HGB Conc 33.6 g/dl (32-36); Mean Corpuscular Hemoglobin 30.4 pg (26-34); Mean Corpuscular Volume 90.4 fl (80-100); Mean Platelet Volume 11.6 fl (7.4-10.4); Monocytes Absolute Auto 0.4 K/mm3 (0.1-0.6); Monocytes Percent Auto 5.3 % (2.6-8.5); Neutrophils Absolute Auto 5.1 K/mm3 (1.3-6.7); Neutrophils Percent Auto 76.4 % (45.5-73.1); Platelet Count Result 198 k/mm3 (150-375); Red Blood Count 4.05 M/mm3 (4.2-5.4); Red Cell Distribution Width 13.2 % (11.5-14.5); White Blood Count 6.7 K/mm3 (4.5-10.0)
[2021-07-22 12:09] LABS: Alanine Aminotransferase 8 U/L (4-35); Albumin Level 4.1 g/dL (3.5-5.1); Alkaline Phosphatase 42 U/L (38-126); Anion Gap 5 mmol/L (8-16); Aspartate Amino Transferase 22 U/L (14-36); Bilirubin,Total 0.3 mg/dL (0.2-1.3); Blood Urea Nitrogen 7 mg/dL (7-17); Calcium 9.5 mg/dL (8.4-10.2); Carbon Dioxide 24 mmol/L (22-30); Chloride 104 mmol/L (98-107); Estimated Glomerular Filt Rate > 60; Glucose 80 mg/dL (65-110); Lipase 125 U/L (23-300); Potassium 3.7 mmol/L (3.4-5.0); Sodium 133 mmol/L (137-145)
[2021-07-22 12:58] VITALS: BP 92/64; PULSE 61; RESP 16; O2SAT 99
[2021-07-22 13:27] LABS: Appearance Urine Cloudy (Clear); Bilirubin Urine Negative (Negative); Blood Urine Negative (Negative); Color Urine Yellow (Yellow); Glucose Urine UA Negative (Negative); Ketones Urine Negative (Negative); Nitrate Urine Negative (Negative); Protein Urine Negative (Negative); Specific Grav Ur 1.025 (1.001-1.035)
[2021-07-22 13:28] LABS: Add Urine Microscopic? YES; Leukocyte Esterase Ur Negative LEU/UL (Negative); Urobilinogen Urine 0.2 mg/dL (<2.0)
--- NOTE | 2021-07-22 13:32 | PC.NURSE ---
called to lab about pending urine. lab states they will look into it.
[2021-07-22] MEDS: SODIUM CHLORIDE 0.9% IV 1,000 ML 999 ML IV CONT (13:39)
[2021-07-22 13:46] LABS: Amorphous Sediment Urine Moderate; Squamous Epithelial Cell Urine Few /hpf (Few)
--- NOTE | 2021-07-22 14:39 | ED.GENADULT ---
HPI - General Adult General Chief complaint: Abdominal Pain Stated complaint: 14 weeks , abd pain Time Seen by Provider: 07/22/21 11:25 History of Present Illness HPI narrative: Patient is a 26-year-old female who has a 14-week IUP presents ER with cramping abdominal pain. Diffuse. Worse with eating and drinking. Associated with diarrhea 3-4 times a day. Mild nausea but no vomiting. Patient notes that 4 days ago when symptoms started she did have some clear vaginal discharge that was streaked with blood x1. No recurrent bleeding. No new discharge. She cannot yet feel her baby moving. Denies fevers or chills or sweats. No known sick contacts. Related Data Allergies Allergy/AdvReac Type Severity Reaction Status Date / Time No Known Allergies Allergy Verified 07/22/21 11:52 Review of Systems Review of Systems: All systems reviewed & are unremarkable except as noted in HPI and below Constitutional: Constitutional: Denies chills, Reports fatigue and Denies fever(s) ENT: Denies nasal congestion and Denies sore throat Cardiovascular: Cardiovascular: Denies chest pain, Denies rapid heart rate and Denies radiating jaw, neck or arm pain Respiratory: Respiratory: Denies cough and Denies dyspnea Gastrointestinal: Gastrointestinal: Reports abdominal pain, Reports diarrhea, Reports nausea and Denies vomiting Genitourinary: Genitourinary: Reports abnormal vaginal bleeding, Denies nocturia, Denies dysuria, Denies flank pain and Denies vaginal discharge PMFSH Past Medical History Medical History Healthy female adult Surgical History Surgical History H/O dilation and curettage Social History Social History Smoking status: Never smoker Alcohol intake: never Substance use: never Substance use type: does not use Spiritual care concerns: No Exam Narrative: GENERAL: Well-appearing, well-nourished, and in no acute distress. HEAD: Normocephalic, atraumatic. EYES: PERRL and EOMI. CHEST: Clear to auscultation. No respiratory distress. HEART: Regular rate and rhythm. Normal peripheral pulses. ABDOMEN: Soft, nontender, nondistended, normal active bowel sounds. EXTREMITIES: Normal range of motion. No edema. SKIN: Warm, dry, no rash. NEURO: Alert and oriented x3. PSYCH: Normal mood and affect. Course Course Emergency Course: Discussed lab findings as well as imaging results with Dr. Carbajal patient's OB. Recommends close follow-up. Patient does not require any antiemetics for home. Blood pressure improved to 110/80 after 1 L IV fluid. Patient may be having combination of GI related illness as well as round ligament pain and uterine cramping from dehydration. Discussed bleeding precautions. Discharged home. Vital Signs Vital signs: Vital Signs Temperature 96.3 F L 07/22/21 11:06 Pulse Rate 82 07/22/21 11:06 Respiratory Rate 16 07/22/21 11:06 Blood Pressure 94/61 L 07/22/21 11:06 Pulse Oximetry 100 07/22/21 11:06 Temperature 96.3 F L 07/22/21 11:06 Pulse Rate 65 07/22/21 15:24 Respiratory Rate 14 07/22/21 15:24 Blood Pressure 99/65 L 07/22/21 15:24 Pulse Oximetry 99 07/22/21 15:24 Medical Decision Making Vital Signs Vital Signs: Vital Signs Temperature 96.3 F L 07/22/21 11:06 Pulse Rate 82 07/22/21 11:06 Respiratory Rate 16 07/22/21 11:06 Blood Pressure 94/61 L 07/22/21 11:06 Pulse Oximetry 100 07/22/21 11:06 Temperature 96.3 F L 07/22/21 11:06 Pulse Rate 65 07/22/21 15:24 Respiratory Rate 14 07/22/21 15:24 Blood Pressure 99/65 L 07/22/21 15:24 Pulse Oximetry 99 07/22/21 15:24 Lab Data Result diagrams: 07/22/21 11:47 07/22/21 11:48 Labs: Lab Results 07/22/21 07/22/21 07/22/21 Range/Units 11:47 11:47 11:48 WBC 6.7 (4.5-10.0
[2021-07-22 15:24] VITALS: BP 99/65; PULSE 65; RESP 14; O2SAT 99
== END 2021-07-22 15:27 | disposition home or self-care (01) ==
PROVIDERS: Emergency Provider Emergency Medicine
DX: O99.612 Diseases of the digestive system complicating pregnancy, second trimester (principal); K52.9 Noninfective gastroenteritis and colitis, unspecified; Z3A.14 14 weeks gestation of pregnancy; O44.02 Complete placenta previa NOS or without hemorrhage, second trimester; O99.282 Endocrine, nutritional and metabolic diseases complicating pregnancy, second trimester; E86.0 Dehydration
CPT/HCPCS: 36415; 76705; 76815; 80053; 81001; 81025; 83690; 85025; 96360; 99284; J7030

== ENCOUNTER 2021-09-29 10:34 | Observation (INO) | payer OTHER, SELFPAY ==
[2021-09-29] VITALS (26 sets, daily range): BP systolic 71–94; BP diastolic 39–52; PULSE 80–117; TEMP 37–38.4; O2SAT 97–100; BMI 23.3
--- NOTE | ~2021-09-29 | US_ITS ---
EXAMINATION: 1. US OB limited 2. US OB transvaginal DATE: 09/29/2021 13:31 INDICATION: Placenta previa. TECHNIQUE: Real-time ultrasound of the pelvis was performed. COMPARISON: Ultrasound 07/22/2021 FINDINGS: Transabdominal images demonstrate a single fetus in vertex presentation. The placenta is posterior, 3.0 cm from the cervix. heart rate is 155 beats per minute (bpm). The amniotic fluid index is 1 5.2 cm, which is normal. On transvaginal images, the cervical length is 4.5 cm, which is normal. IMPRESSION: 1. Single living fetus in vertex presentation. 2. Normal placenta. Reviewed, dictated and finalized at location B. IMPRESSION: 1. Single living fetus in vertex presentation. 2. Normal placenta.
--- NOTE | ~2021-09-29 | US_ITS ---
EXAMINATION: US renal BI DATE: 09/29/2021 17:17 INDICATION: Fever and back pain during third trimester TECHNIQUE: Multiple ultrasound grayscale images of the kidneys were obtained. COMPARISON: None. FINDINGS: The right kidney measures 9.2 x 5.0 x 4.5 cm. The left kidney measures 10.4 x 4.6 x 4.6 cm. The kidne ys demonstrate normal echogenicity. Renal artery resistive indices of <0.66 in both kidneys which is normal. There is no hydronephrosis in either kidney. No stones identified. The bladder is normal. IMPRESSION: 1. Normal kidneys without hydronephrosis. Reviewed, dictated and finalized at location A.
--- NOTE | 2021-09-29 11:18 | OBADM ---
This patient, Judie Holliday, admitted to the OB room OB Post 115 for observation. Patient/family oriented to hospital policies and general routines including ID bracelet, bed and alarms, visiting hours, pain management, procedures, bathroom and other care routines, personal items, smoking policy, room service/diet, and visiting hours. Patient/Family are encouraged to report perceived risks to care and to ask questions if they do not understand what they are told or what they should do.
[2021-09-29 11:43] LABS: Glucose Point of Care 87 mg/dl (65-105)
[2021-09-29 12:03] LABS: Appearance Urine Clear (Clear); Bilirubin Urine Negative (Negative); Blood Urine Negative (Negative); Color Urine Yellow (Yellow); Glucose Urine UA Negative (Negative); Ketones Urine 4+ mg/dL (Negative); Leukocyte Esterase Ur Trace LEU/UL (Negative); Nitrate Urine Negative (Negative); Protein Urine Negative (Negative); Specific Grav Ur >= 1.030 (1.001-1.035); Urobilinogen Urine 0.2 mg/dL (<2.0); pH Urine 5.5 (5.0-9.0)
[2021-09-29 12:06] LABS: Bacteria Urine Trace /hpf; Mucus Urine Rare /lpf; Squamous Epithelial Cell Urine Many /hpf (Few)
[2021-09-29 12:09] LABS: Add Urine Microscopic? YES
[2021-09-29] MEDS: ONDANSETRON HCL ODT 4 MG TABLET PO (12:40)
[2021-09-29] MEDS: NITROFURANTOIN MONOHYD MACROCR 100 MG CAP PO (14:46)
[2021-09-29] MEDS: DEXTROSE 5%/LACTATED RINGERS 1,000 ML 999 ML IV CONT (14:46)
[2021-09-29] MEDS: ACETAMINOPHEN 500 MG TABLET 1000 MG PO (16:56)
[2021-09-29] MEDS: cefTRIAXone 2 GM in SODIUM CHLORIDE 0.9% IV 100 ML 200 ML IVPB (17:48)
--- NOTE | 2021-09-29 17:48 | PC.NURSE ---
Pt instructed to notify us if her abdominal and back pain start getting worse again or if the intermittent cramping should restart so we could put her back on the monitor. Pt currently rates her abdominal/back pain as a 3 out of 10 and no additional cramping.
--- NOTE | 2021-09-29 18:20 | PC.NURSE ---
Jaylyn Vasquez CNM on unit and informed of renal U/S result and temp down to 99.1 after Tylenol.
[2021-09-29 18:51] LABS: Hematocrit 30.9 % (37.0-47.0); Hemoglobin 10.4 g/dL (12.0-15.0); Mean Corpuscular HGB Conc 33.7 g/dl (32-36); Mean Corpuscular Hemoglobin 29.6 pg (26-34); Mean Platelet Volume 11.6 fl (7.4-10.4); Platelet Count Result 133 k/mm3 (150-375); Red Blood Count 3.51 M/mm3 (4.2-5.4); Red Cell Distribution Width 13.1 % (11.5-14.5); White Blood Count 6.3 K/mm3 (4.5-10.0)
[2021-09-29 19:25] LABS: Band Neutrophils Percent 9 % (0-6); Lymphocytes Absolute Manual 0.25 K/mm3 (1.1-4.5); Monocytes Absolute Manual 0.06 K/mm3 (0.1-0.90); Monocytes Percent Manual 1 % (3-9); Neutrophils Absolute Manual 5.98 K/mm3 (1.7-7.2); Neutrophils Percent Manual 86 % (46-73); Platelet Estimate Decreased (Adequate); Total Cells Counted 100
--- NOTE | 2021-09-29 21:23 | PM.IMHP ---
H&P: HPI History of Present Illness Date/Time: 09/29/21 21:23 Pt admitted to for increasing pelvic and abdominal pain, lasting 10 sec each, no contractions on toco, FHR doppled by RN, febrile, urinalysis done, complicated by mild cholestasis. Chief Complaint: abd/pelvic pain Review of Systems Review of Systems: All systems reviewed & are unremarkable except as noted in HPI and below PMFSH Past Medical History Medical History Healthy female adult Surgical History Surgical History H/O dilation and curettage Social History Social History Smoking status: Never smoker Alcohol intake: never Substance use: never Substance use type: does not use Spiritual care concerns: No Meds Home Medications and Allergies Home Medications Medication Instructions Recorded Confirmed Type PNV cmb#95-ferrous fumarate-FA 1 tablet PO DAILY 09/29/21 09/29/21 History [] ursodiol 500 mg PO BID 09/29/21 09/29/21 History Allergies Allergy/AdvReac Type Severity Reaction Status Date / Time No Known Allergies Allergy Verified 07/22/21 11:52 Vital Signs Vital Signs - 24 hr 09/29/21 10:59 09/29/21 11:00 09/29/21 11:01 Temperature Pulse Rate 82 80 Blood Pressure 74/40 L 73/39 L Pulse Oximetry 99 09/29/21 11:02 09/29/21 11:06 09/29/21 11:11 Temperature 37.0 C Pulse Rate Blood Pressure Pulse Oximetry 99 97 09/29/21 11:15 09/29/21 11:16 09/29/21 11:17 Temperature Pulse Rate 93 Blood Pressure 85/48 L Pulse Oximetry 99 99 09/29/21 11:21 09/29/21 11:26 09/29/21 11:30 Temperature Pulse Rate 87 Blood Pressure 71/42 L Pulse Oximetry 98 100 09/29/21 11:34 09/29/21 11:39 09/29/21 11:44 Temperature Pulse Rate Blood Pressure Pulse Oximetry 98 99 100 09/29/21 11:45 09/29/21 11:49 09/29/21 11:54 Temperature Pulse Rate 90 Blood Pressure 84/48 L Pulse Oximetry 99 100 09/29/21 11:59 09/29/21 12:00 09/29/21 13:28 Temperature 37.7 C H Pulse Rate 86 Blood Pressure 94/52 L Pulse Oximetry 99 09/29/21 14:01 09/29/21 16:03 09/29/21 16:56 Temperature 38.4 C H Pulse Rate 91 117 H Blood Pressure 81/39 L 85/42 L Pulse Oximetry 09/29/21 17:52 09/29/21 17:53 Temperature 37.3 C 37.3 C Pulse Rate Blood Pressure Pulse Oximetry Exam Const: General: cooperative, healthy appearing and comfortable H&P: Results Labs Labs: Short CBC 09/29/21 Range/Units 18:43 WBC 6.3 (4.5-10.0) K/mm3 Hgb 10.4 L (12.0-15.0) g/dL Hct 30.9 L (37.0-47.0) % Plt Count 133 L (150-375) k/mm3 Urine 09/29/21 Range/Units 11:38 Urine Color Yellow (Yellow) Urine Appearance Clear (Clear) Urine pH 5.5 (5.0-9.0) Ur Specific [place] >= 1.030 (1.001-1.035) Urine Protein Negative (Negative) mg/dL Urine Glucose (UA) Negative (Negative) mg/dL Assessment and Plan Additional Plan 1.UTI vs pyelonephritis continue IV antibiotics and IV hydration pain management reviewed with DR. Carbajal
[2021-09-30] MEDS: ACETAMINOPHEN 500 MG TABLET 1000 MG PO (00:06)
[2021-09-30 00:09] VITALS: TEMP 37.3
--- NOTE | 2021-09-30 02:01 | PC.NURSE ---
1924- pt resting quietly. no complaints of pain. no other complaints. pt to let nurse know if having pain or any other concerns/questions.
--- NOTE | 2021-09-30 02:03 | PC.NURSE ---
0000- pt sleeping upon entering room. pt awoke stating that her headache has returned and is requesting tylenol.
[2021-09-30 07:34] VITALS: TEMP 36.9
--- NOTE | 2021-09-30 07:44 | PM.OBPNVD ---
OB - PN: Subj Subjective Date/time seen: 09/30/21 07:44Patient denies any fever, her pain is improved, she denies any contractions or bleeding. She reports good movement. She denies any fevers or chills. OB - PN: Obj Data Labs CBC & Chem 7: 09/29/21 18:43 Labs: Laboratory Results - last 24 hr 09/29/21 09/29/21 09/29/21 11:16 11:38 18:43 WBC 6.3 RBC 3.51 L Hgb 10.4 L Hct 30.9 L MCV 88.0 MCH 29.6 MCHC 33.7 RDW 13.1 Plt Count 133 L MPV 11.6 H Immature Gran % (Auto) Not Reportable Neut % (Auto) Not Reportable Lymph % (Auto) Not Reportable [place] % (Auto) Not Reportable Eos % (Auto) Not Reportable Baso % (Auto) Not Reportable Lymph # (Auto) Not Reportable [place] # (Auto) Not Reportable Eos # (Auto) Not Reportable Baso # (Auto) Not Reportable Abs Immat Gran (auto) Not Reportable Absolute Neuts (auto) Not Reportable Absolute Nucleated RBC Not Reportable Total Counted 100 Neutrophils % (Manual) 86 H Band Neutrophils % 9 H Lymphocytes % (Manual) 4.0 L Monocytes % (Manual) 1 L Nucleated RBC % Not Reportable Abs Neuts (Manual) 5.98 Abs Lymphs (Manual) 0.25 L Abs Monocytes (Manual) 0.06 L Platelet Estimate Decreased % Immature Plt Fraction 9.0 POC Capillary Glucose 87 Urine Color Yellow Urine Appearance Clear Urine pH 5.5 Ur Specific [place] >= 1.030 Urine Protein Negative Urine Glucose (UA) Negative Urine Ketones 4+ H Ur Blood (Man) Negative Urine Nitrate Negative Urine Bilirubin Negative Urine Urobilinogen 0.2 Leukocyte Esterase Rfl Trace H Urine RBC 3-5 H Urine WBC 10-15 H Ur Squamous Epith Cells Many H Urine Bacteria Trace Urine Mucus Rare Imaging Radiologist's impression: Impressions Obstetrics Ultrasound 09/29/21 13:34 IMPRESSION: 1. Single living fetus in vertex presentation. 2. Normal placenta. Transvaginal US 09/29/21 13:34 IMPRESSION: 1. Single living fetus in vertex presentation. 2. Normal placenta. Renal Ultrasound 09/29/21 17:19 IMPRESSION: 1. Normal kidneys without hydronephrosis. OB - PN A/P Assessment and Plan (1) Pyelonephritis: Code(s): N12 - Tubulo-interstitial nephritis, not specified as acute or chronic Status: Acute Assessment and Plan: patient treated with IV antibiotics for 36 hours. Her pain is improved. Her quantitative measures of infection of improved. Patient like to be treated outpatient. Agreed on oral antibiotics and treatment home. She will follow up in 1 week. To prescribe oral antibiotics and for her to take Macrobid daily for the rest of . (2) Second trimester fetus: Code(s): Z34.92 - Encounter for supervision of normal , unspecified, second trimester Status: Acute Time Spent With Patient Time: Total time spent is greater than 50% in coordination of care (as documented) at patient's floor/unit and/or counseling patient: Review of Systems Review of Systems: All systems reviewed & are unremarkable except as noted in HPI and below Constitutional: Constitutional: Denies chills, Denies fatigue, Denies fever(s) and Denies weakness Eyes: Eyes: Denies blurry vision, Denies change in vision, Denies loss of peripheral vision, Denies loss of vision, Denies other visual disturbances and Denies eye pain ENT: Denies vertigo, Denies dizziness, Denies hearing loss, Denies mouth pain, Denies nasal obstruction, Denies neck mass and Denies neck pain Cardiovascular: Cardiovascular: Denies chest pain, Denies diaphoresis, Denies syncope, Denies leg edema and Denies dyspnea Respiratory: Respiratory: Denies chest congestion, Denies cough, Denies hemoptysis, Denies dyspnea and Denies wheezing Gastrointestinal: Gastrointestinal: Denies abdominal pain, Denies constipation, Denies diarrhea, Denies nausea and Denies vomiting Genitour
== END 2021-09-30 08:10 | disposition home or self-care (01) ==
PROVIDERS: Advanced Practice Midwife; Admitting Provider Obstetrics & Gynecology; Visit Provider Obstetrics & Gynecology
DX: O26.832 Pregnancy related renal disease, second trimester (principal); N12 Tubulo-interstitial nephritis, not specified as acute or chronic; Z3A.24 24 weeks gestation of pregnancy
CPT/HCPCS: 36415; 76775; 76815; 76817; 81001; 82948; 84112; 85025; 85055; 87086; 96361; 96365; A9270; G0378; G0379; J7121

== ENCOUNTER 2021-12-16 15:05 | Observation (INO) | payer OTHER, SELFPAY ==
[2021-12-16 15:48] VITALS: BP 104/61; PULSE 75
[2021-12-16 15:50] VITALS: BMI 23.9
--- NOTE | 2021-12-16 17:45 | PC.NURSE ---
Discussed pt with Dr. Carbajal. Informed of irregular contractions. No change in SVE. Orders received.
--- NOTE | 2021-12-16 18:05 | PC.NURSE ---
Pt states that she feels better and would like to go home. Declines terbutaline.
--- NOTE | 2022-01-07 08:12 | PM.OBTRLD ---
OB - Triage/Final Diagnosis Visit Information Comments/Additional reasons for admission: I have assessed the risk for this patient, Judie Montgomery Jamey Holliday, and determined that she would benefit from observation care. Final Diagnosis (1) Amniotic fluid leaking: Code(s): O42.90 - Premature rupture of membranes, unspecified as to length of time between rupture and onset of labor, unspecified weeks of gestation Status: Acute
== END 2021-12-16 18:20 | disposition home or self-care (01) ==
PROVIDERS: Admitting Provider Obstetrics & Gynecology; Visit Provider Obstetrics & Gynecology
DX: O42.913 Preterm premature rupture of membranes, unspecified as to length of time between rupture and onset of labor, third trimester (principal); Z3A.35 35 weeks gestation of pregnancy
CPT/HCPCS: 84112; G0378; G0379

== ENCOUNTER 2021-12-27 06:09 | Inpatient (IN) | payer OTHER, SELFPAY ==
[2021-12-27] VITALS (90 sets, daily range): BP systolic 85–147; BP diastolic 53–133; PULSE 46–124; RESP 16; TEMP 36.3–36.6; O2SAT 95–100; BMI 24.5
--- NOTE | 2021-12-27 06:09 | LDADM ---
This patient, Judie Holliday, was admitted to Labor/Delivery/Recovery 103 on 12/27/21 at 06:09. Plans for labor, pain management and were discussed with patient. Patient/family oriented to hospital policies and general routines including ID bracelet, bed and alarms, visiting hours, pain management, procedures, bathroom and other care routines, personal items, smoking policy, room service/diet and guest tray routines, security routines, and visiting hours. Patient/Family are encouraged to report perceived risks to care and to ask questions if they do not understand what they are told or what they should do. See OBIX for further documentation.
--- OUTSIDE RECORDS SUMMARY | 2021-12-27 06:16 | XMS_ITS | Encounter Summary ---
:1995 Author Reason for Visit None recorded. Assessment and Plan 1. Cholestasis of ? non-stress test Discussion Note: None recorded.Patient educational handouts: No information available. Plan of Care Reminders Provider Appointments Nst 12/28/2021 9:00AM Nst, , EQUIP ? Ob Routine 12/28/2021 8:30AM Heather Arnold MD ? U/S OB BPP 12/28/2021 9:30AM Ultrasound, TECH ? Nst 12/31/2021 1:00PM Nst, , EQUIP Lab None recorded. ? ? Referral None recorded. ? ? Procedures None recorded. ? ? Surgeries None recorded. ? ? Imaging Non-stress Test 12/24/2021 [place] Medications Name Start Date ? ? albuterol sulf 90 mcg/actuation breath activated powde r inhaler,sensor ? INHALE 2 PUFFS BY MOUTH EVERY 6 HOURS NEEDED FOR W HEEZING albuterol sulfate HFA 90 mcg/actuation aerosol inhaler ? metoclopramide 5 mg tablet ? TAKE 1 TABLET BY MOUTH 4 TIMES DAILY NEEDED ? ursodiol 500 mg tablet ? TAKE 1 TABLET BY MOUTH TWICE DAILY Medications Administered None recorded. Vitals None recorded. Results Lab Results None recorded. Allergies Code Code System Name Reaction Severity Onset NKDA ? ? ? Problems Name Status Onset Date Source ? Active 08/27/2020 ? 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 Procedures Date Name Performed by ? 09/08/2020 Suction Dilation & Curettage (Surg) Info rmation not available 11/26/2021 Non-stress Test [place] [address]
--- OUTSIDE RECORDS SUMMARY | 2021-12-27 06:16 | XMS_ITS | Encounter Summary ---
:1995 Author Reason for Visit OB visit Assessment and Plan Assessment Note Patient is ___weeks . Discussed plan. 1. Routine care Discussion Note: None recorded.Patient educational handouts: No [...] ? Surgeries None recorded. ? ? Imaging None recorded. ? ? Medications Name Start Date ? ? albuterol [...] TWICE DAILY Medications Administered None recorded. Vitals Height Weight BMI Blood Pressure 4 ft 7.75 in 121 lbs 27.4 kg/m2 102/64 mm[Hg] Results Lab Results None recorded. Allergies Code Code System Name Reaction Severity Onset NKDA ? ? ? Problems Name Status Onset Date Source ? Active 08/27/2020 ? 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 Procedures Date Name Performed by ?
--- OUTSIDE RECORDS SUMMARY | 2021-12-27 06:16 | XMS_ITS ---
:1995 Author Care Team Providers Name Role Phone Broderick Carbajal Primary Care Provider Unavailable Allergies Code Code System Name Reaction Severity Status Onset NKDA ? Medications Name Status Start Date Stop Date ? ? albuterol sulf 90 mcg/actuation breath activated powder inhaler, sensor Active ? Not available INHALE 2 PUFFS BY MOUTH EVERY 6 HOURS NEEDED FOR WHEEZING albuterol sulfate HFA 90 mcg/actuation aerosol Active ? Not available inhaler amoxicillin 500 mg capsule Completed ? 08/27 Bactrim DS 800 mg-160 mg tablet Completed 03/22/2018 08/27/2020 take 1 tablet by oral route every 12 hours cyclobenzaprine 5 mg tablet Completed ? 08/10 diclofenac ER 100 mg tablet,extended release 24 Completed ? 08/27/2020 hr doxycycline hyclate 100 mg capsule Completed ? 01/18/2020 Junel FE 07/01 (28) 1 mg-20 mcg (21)/75 mg (7) tablet Completed ? 05/22/2020 Take 1 tablet every day by oral route. mefenamic acid 250 mg capsule Unknown ? No t available Take 500mg initial loading dose x 1. Th en, 250mg q8hrs for max of 7 days prn. Take with food. metoclopramide 5 mg tablet Active ? Not a vailable TAKE 1 TABLET BY MOUTH 4 TIMES DAILY NEEDED nitrofurantoin monohydrate/macrocrystals 100 mg capsule Complete d ? 11/09/2021 TAKE 1 CAPSULE BY MOUTH EVERY 12 HOURS FOR 7 DAYS WITH FOOD nystatin 100,000 unit/gram topical ointment Completed ? 01/18/2020 nystatin-triamcinolone 100,000 unit/gram-0.1 % topical ointm ent Completed 03/07/2019 08/27/2020 apply by topical route 2 times every day to the affected area(s ) x 7d Act
--- OUTSIDE RECORDS SUMMARY | 2021-12-27 06:17 | XMS_ITS | Encounter Summary ---
:1995 Author Reason for Visit None recorded. Assessment and Plan 1. Cholestasis of ? US, obstetric, biophysical profile + non-stress test Discussion Note: None recorded.Patient educational handouts: No information available. Plan of Care Reminders Provider Appointments Nst 12/28/2021 Nst, , EQUIP 9:00AM ? Ob Routine 12/28/2021 Heather restrepo MD 8:30AM ? U/S OB BPP 12/28/2021 Ultrasound, ADRIANNE H 9:30AM ? Nst 12/31/2021 Nst, , EQUIP 1:00PM Lab None recorded. ? ? Referral None recorded. ? ? Procedures None recorded. ? ? Surgeries None recorded. ? ? Imaging US, Obstetric, Biophysical 11/30/2021 [place] Profile + Non-stress Test Medications Name Start Date ? ? albuterol [...]
--- OUTSIDE RECORDS SUMMARY | 2021-12-27 06:17 | XMS_ITS | Encounter Summary ---
:1995 Author Reason for Visit None recorded. Assessment and Plan 1. Cholestasis of ? non-stress test Discussion Note: None recorded.Patient educational handouts: No information available. Plan of Care Reminders Provider Appointments Nst 12/28/2021 9:00AM Nst, , EQUIP ? Ob Routine 12/28/2021 8:30AM Haether Arnold MD ? U/S OB BPP 12/28/2021 9:30AM Ultrasound, TECH ? Nst 12/31/2021 1:00PM Nst, , EQUIP Lab None recorded. ? ? Referral None recorded. ? ? Procedures None recorded. ? ? Surgeries None recorded. ? ? Imaging Non-stress Test 12/07/2021 [place] Medications Name Start Date ? ? albuterol [...] & Curettage (Surg) Info rmation not available 11/09/2021 US, Obstetric, Biophysical Profile + [place] Non-stress Test [address] [place]
--- OUTSIDE RECORDS SUMMARY | 2021-12-27 06:17 | XMS_ITS | Encounter Summary ---
:1995 Author Reason for Visit OB visit Assessment and Plan 1. Cholestasis of Discussion Note: None recorded.Patient educational handouts: No [...] BMI Blood Pressure 4 ft 7.75 in 118 lbs 26.7 kg/m2 90/54 mm[Hg] Results Lab Results None recorded. Allergies Code Code System Name Reaction Severity Onset NKDA ? ? ? Problems Name Status Onset Date Source ? Active 08/27/2020 ? 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 Procedures Date Name Performed by ? 09/08/2020 Suction Dilation & Curettage (Surg) Info rmation not available 11/09/2021 US, Obstetric, Biophysical Profile + M
--- OUTSIDE RECORDS SUMMARY | 2021-12-27 06:17 | XMS_ITS | Encounter Summary ---
[...] None recorded. ? ? Imaging Non-stress Test 12/10/2021 [place] Medications Name Start Date ? ? albuterol [...] & Curettage (Surg) Info rmation not available 11/16/2021 US, Obstetric, Biophysical Profile + [place] Non-stress Test [address] [place]
--- OUTSIDE RECORDS SUMMARY | 2021-12-27 06:17 | XMS_ITS | Encounter Summary ---
[...] BMI Blood Pressure 4 ft 7.75 in 115 lbs 26 kg/m2 102/66 mm[Hg] Results Lab Results None recorded. Allergies Code Code System Name Reaction Severity Onset NKDA ? ? ? Problems Name Status Onset Date Source ? Active 08/27/2020 ? 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 Procedures Date Name Performed by ? 09/08/2020 Suction Dilation & Curettage (Surg) Info rmation not available 10/26/2021 Non-stress Test [place]
--- OUTSIDE RECORDS SUMMARY | 2021-12-27 06:17 | XMS_ITS | Encounter Summary ---
:1995 Author Reason for Visit OB visit OB [id number] EDC 01/17/2022 LMP 04/06/2021 Assessment and Plan Assessment Note Patient is _35__weeks . Discuss ed plan. 1. Routine care Discussion Note: None [...] ft 7.75 in 118 lbs 26.7 kg/m2 101/66 mm[Hg] Results Lab Results None recorded. Allergies Code Code System Name Reaction Severity Onset NKDA ? ? ? Problems Name Status Onset Date Source ? Active 08/27/2020 ? 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 Procedures
--- OUTSIDE RECORDS SUMMARY | 2021-12-27 06:17 | XMS_ITS | Encounter Summary ---
[...] None recorded. ? ? Imaging Non-stress Test 12/03/2021 [place] Medications Name Start Date ? ? albuterol [...] & Curettage (Surg) Info rmation not available 11/02/2021 US, Obstetric, Biophysical Profile + [place] Non-stress Test [address] [place]
--- OUTSIDE RECORDS SUMMARY | 2021-12-27 06:17 | XMS_ITS | Encounter Summary ---
[...] recorded. ? ? Imaging US, Obstetric, Biophysical 12/14/2021 [place] Profile + Non-stress Test Medications [...]
--- OUTSIDE RECORDS SUMMARY | 2021-12-27 06:17 | XMS_ITS | Encounter Summary ---
[...] recorded. ? ? Imaging US, Obstetric, Biophysical 12/07/2021 [place] Profile + Non-stress Test Medications [...]
--- OUTSIDE RECORDS SUMMARY | 2021-12-27 06:17 | XMS_ITS | Encounter Summary ---
:1995 Author Reason for Visit OB visit Assessment and Plan Assessment Note Patient is ___weeks . Discussed plan. 1. Cholestasis of ? bile acids, total, serum Discussion Note: None recorded.Patient educational handouts: No information available. Plan of Care Reminders Provider Appointments Nst 12/28/2021 9:00AM Nst, , EQUIP ? Ob Routine 12/28/2021 8:30AM Heather Arnold MD ? U/S OB BPP 12/28/2021 9:30AM Ultrasound, TECH ? Nst 12/31/2021 1:00PM Nst, , EQUIP Lab Bile Acids, Total, Serum 11/30/2021 [facility] (Lab) Referral None recorded. ? ? Procedures None [...] ft 7.75 in 115 lbs 26 kg/m2 97/67 mm[Hg] Results Lab Results Date Name Specimen Result Interpretation Description Value Range Status Address ? 11/11
--- OUTSIDE RECORDS SUMMARY | 2021-12-27 06:17 | XMS_ITS | Encounter Summary ---
[...] None recorded. ? ? Imaging Non-stress Test 12/14/2021 [place] Medications Name Start Date ? ? albuterol [...]
--- OUTSIDE RECORDS SUMMARY | 2021-12-27 06:17 | XMS_ITS | Encounter Summary ---
[...] None recorded. ? ? Imaging Non-stress Test 12/21/2021 [place] Medications Name Start Date ? ? albuterol [...] & Curettage (Surg) Info rmation not available 11/23/2021 US, Obstetric, Biophysical Profile + [place] [facility] Non-stress Test [address]
--- OUTSIDE RECORDS SUMMARY | 2021-12-27 06:17 | XMS_ITS | Encounter Summary ---
[...] None recorded. ? ? Imaging Non-stress Test 11/30/2021 [place] Medications Name Start Date ? ? albuterol [...]
--- OUTSIDE RECORDS SUMMARY | 2021-12-27 06:17 | XMS_ITS | Encounter Summary ---
:1995 Author Reason for Visit None recorded. Assessment and Plan 1. Cholestasis of ? US, obstetric, follow-up ? US, obstetric, biophysical profile + non-stress [...] None recorded. ? ? Imaging US, Obstetric, Follow-up 12/21/2021 [place] ? US, Obstetric, Biophysical 12/21/2021 [place] Profile + Non-stress Test Medications [...] ? ? Problems Name Status Onset Date So
--- OUTSIDE RECORDS SUMMARY | 2021-12-27 06:18 | XMS_ITS | Encounter Summary ---
[...] None recorded. ? ? Imaging Non-stress Test 11/16/2021 [place] Medications Name Start Date ? ? albuterol [...] Info rmation not available 10/26/2021 Non-stress Test [place] [address]
--- OUTSIDE RECORDS SUMMARY | 2021-12-27 06:18 | XMS_ITS | Encounter Summary ---
[...] BMI Blood Pressure 4 ft 7.75 in 114 lbs 25.8 kg/m2 (1) 95/61 mm[Hg ] (2) 96/61 mm[Hg] Results Lab Results None recorded. Allergies Code Code System Name Reaction Severity Onset NKDA ? ? ? Problems Name Status Onset Date Source ? Active 08/27/2020 ? 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 Procedures
--- OUTSIDE RECORDS SUMMARY | 2021-12-27 06:18 | XMS_ITS | Encounter Summary ---
:1995 Author Reason for Visit OB visit Assessment and Plan Assessment Note Patient is ___weeks . Discussed plan. 1. Cholestasis of ? ursodiol 500 mg tablet Discussion Note: None recorded.Patient educational handouts: No [...] ft 7.75 in 115 lbs 26 kg/m2 95/56 mm[Hg] Results Lab Results None recorded. Allergies Code Code System Name Reaction Severity Onset NKDA ? ? ? Problems Name Status Onset Date Source ? Active 08/27/2020 ? 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 Procedures Date
--- OUTSIDE RECORDS SUMMARY | 2021-12-27 06:18 | XMS_ITS | Encounter Summary ---
:1995 Author Reason for Visit None recorded. Assessment and Plan None recorded.Discussion Note: None recorded.Patient educational handouts: No information [...] Info rmation not available 10/26/2021 Non-stress Test [place] [address] [place] [address]
--- OUTSIDE RECORDS SUMMARY | 2021-12-27 06:18 | XMS_ITS | Encounter Summary ---
[...] None recorded. ? ? Imaging Non-stress Test 11/05/2021 [place] Medications Name Start Date ? ? albuterol [...] Info rmation not available 10/26/2021 Non-stress Test [place] [address]
--- OUTSIDE RECORDS SUMMARY | 2021-12-27 06:18 | XMS_ITS | Encounter Summary ---
:1995 Author Reason for Visit None recorded. Assessment and Plan 1. Cholestasis of ? US, obstetric, biophysical profile + non-stress test ? US, obstetric, follow-up Discussion Note: None recorded.Patient educational handouts: No [...] recorded. ? ? Imaging US, Obstetric, Biophysical 11/02/2021 [place] Profile + Non-stress Test ? US, Obstetric, Follow-up 11/02/2021 [place] Medications Name Start Date ? ? albuterol [...]
--- OUTSIDE RECORDS SUMMARY | 2021-12-27 06:18 | XMS_ITS | Encounter Summary ---
:1995 Author Reason for Visit NST [id number] EDC 01/17/2022 Assessment and Plan 1. Cholestasis of ? [...] None recorded. ? ? Imaging Non-stress Test 11/09/2021 [place] Medications Name Start Date ? ? albuterol [...] ft 7.75 in 114 lbs 25.8 kg/m2 94/62 mm[Hg] Results Lab Results None recorded. Allergies Code Code System Name Reaction Severity Onset NKDA ? ? ? Problems Name Status Onset Date Source ? Active 08/27/2020 ? 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 Procedures Date Name Performed by ? 09/08/2020 Suction Dilation & Curettage (Surg) Info rmation not avai
--- OUTSIDE RECORDS SUMMARY | 2021-12-27 06:18 | XMS_ITS | Encounter Summary ---
[...] recorded. ? ? Imaging US, Obstetric, Biophysical 11/09/2021 [place] Profile + Non-stress Test Medications [...]
--- OUTSIDE RECORDS SUMMARY | 2021-12-27 06:18 | XMS_ITS | Encounter Summary ---
[...] None recorded. ? ? Imaging Non-stress Test 11/19/2021 [place] Medications Name Start Date ? ? albuterol [...] TWICE DAILY Medications Administered None recorded. Vitals Blood Pressure 94/58 mm[Hg] Results Lab Results None recorded. Allergies Code Code System Name Reaction Severity Onset NKDA ? ? ? Problems Name Status Onset Date Source ? Active 08/27/2020 ? 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 Procedures Date Name Performed by ? 09/08/2020 Suction Dilation & Curettage (Surg) Info rmation not available 10/26/2021 Non-
--- OUTSIDE RECORDS SUMMARY | 2021-12-27 06:18 | XMS_ITS | Encounter Summary ---
:1995 Author Reason for Visit None recorded. Assessment and Plan Assessment Note Patient is ___weeks . Discussed plan. 1. Cholestasis of ? non-stress test Discussion [...] None recorded. ? ? Imaging Non-stress Test 11/26/2021 [place] Medications Name Start Date ? ? albuterol [...]
--- OUTSIDE RECORDS SUMMARY | 2021-12-27 06:18 | XMS_ITS | Encounter Summary ---
:1995 Author Reason for Visit NST [id number] EDC 01/17/2022 Assessment and Plan 1. Cholestasis [...] None recorded. ? ? Imaging Non-stress Test 11/23/2021 [place] Medications Name Start Date ? ? albuterol [...] BMI Blood Pressure 4 ft 7.75 in 116 lbs 26.2 kg/m2 106/61 mm[Hg] Results Lab Results None recorded. Allergies Code Code System Name Reaction Severity Onset NKDA ? ? ? Problems Name Status Onset Date Source ? Active 08/27/2020 ? 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 Procedures Date Name Performed by ? 09/08/2020 Suction Dilation & Curettage (Surg) Info rmation not hi
--- OUTSIDE RECORDS SUMMARY | 2021-12-27 06:18 | XMS_ITS | Encounter Summary ---
[...] recorded. ? ? Imaging US, Obstetric, Biophysical 11/16/2021 [place] Profile + Non-stress Test Medications [...]
--- OUTSIDE RECORDS SUMMARY | 2021-12-27 06:18 | XMS_ITS | Encounter Summary ---
[...] recorded. ? ? Imaging Non-stress Test 11/26/2021 [place] Medications Name Start Date ? ? albuterol [...] DAILY Medications Administered None recorded. Vitals Height 4 ft 7.75 in Results Lab Results None recorded. Allergies Code Code System Name Reaction Severity Onset NKDA ? ? ? Problems Name Status Onset Date Source ? Active 08/27/2020 ? 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 Procedures Date Name Performed by ?
--- OUTSIDE RECORDS SUMMARY | 2021-12-27 06:18 | XMS_ITS | Encounter Summary ---
[...] ft 7.75 in 115 lbs 26 kg/m2 91/59 mm[Hg] Results Lab Results None recorded. Allergies Code Code System Name Reaction Severity Onset NKDA ? ? ? Problems Name Status Onset Date Source ? Active 08/27/2020 ? 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 Procedures Date Name Performed by ?
--- OUTSIDE RECORDS SUMMARY | 2021-12-27 06:18 | XMS_ITS | Encounter Summary ---
:1995 Author Reason for Visit NST [id number] edc 01/17/2022 Assessment and Plan 1. Cholestasis of [...] None recorded. ? ? Imaging Non-stress Test 11/02/2021 [place] Medications Name Start Date ? ? albuterol [...]
--- OUTSIDE RECORDS SUMMARY | 2021-12-27 06:18 | XMS_ITS | Encounter Summary ---
[...] recorded. ? ? Imaging US, Obstetric, Biophysical 11/23/2021 [place] Profile + Non-stress Test Medications [...]
--- OUTSIDE RECORDS SUMMARY | 2021-12-27 06:18 | XMS_ITS | Encounter Summary ---
:1995 Author Reason for Visit OB visit Assessment and Plan 1. Routine care 2. Cholestasis of Discussion Note: None recorded.Patient educational [...]
--- OUTSIDE RECORDS SUMMARY | 2021-12-27 06:19 | XMS_ITS | Encounter Summary ---
[...] recorded. ? ? Imaging US, Obstetric, Biophysical 10/26/2021 [place] Profile + Non-stress Test Medications [...]
--- OUTSIDE RECORDS SUMMARY | 2021-12-27 06:19 | XMS_ITS | Encounter Summary ---
[...] None recorded. ? ? Imaging Non-stress Test 10/26/2021 [place] Medications Name Start Date ? ? albuterol [...] TWICE DAILY Medications Administered None recorded. Vitals Weight Blood Pressure 114 lbs 130/70 mm[Hg] Results Lab Results None recorded. Allergies Code Code System Name Reaction Severity Onset NKDA ? ? ? Problems Name Status Onset Date Source ? Active 08/27/2020 ? 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 Procedures Date Name Performed by ? 09/08/2020 Suction Dilation & Curettage (Surg) Info rmation not available
--- OUTSIDE RECORDS SUMMARY | 2021-12-27 06:19 | XMS_ITS | Encounter Summary ---
[...] None recorded. ? ? Imaging Non-stress Test 10/29/2021 [place] Medications Name Start Date ? ? albuterol [...] Info rmation not available 10/26/2021 Non-stress Test [place] [address]
--- OUTSIDE RECORDS SUMMARY | 2021-12-27 06:19 | XMS_ITS | Encounter Summary ---
[...] BMI Blood Pressure 4 ft 7.75 in 113 lbs 25.6 kg/m2 98/62 mm[Hg] Results Lab Results None recorded. Allergies Code Code System Name Reaction Severity Onset NKDA ? ? ? Problems Name Status Onset Date Source ? Active 08/27/2020 ? 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 Procedures Date Name Performed by ?
--- OUTSIDE RECORDS SUMMARY | 2021-12-27 06:19 | XMS_ITS | Encounter Summary ---
:1995 Author Reason for Visit None recorded. Assessment and Plan 1. condition affecting obstetrica l care of mother ? US, obstetric, biophysical profile + non-stress [...] recorded. ? ? Imaging US, Obstetric, Biophysical 10/29/2021 [place] Profile + Non-stress Test Medications [...] Source ? Active 08/27/2020 ? Cholestasis of Preg
--- OUTSIDE RECORDS SUMMARY | 2021-12-27 06:19 | XMS_ITS ---
:1995 Author Care Team Providers Name Role Phone MICAH MORRELL Primary Care Provider [phone] SACHIN ADAMS DO OTHER [phone] Allergies Code Code System Name Reaction Severity Status Onset NKDA ? Medications Name Status Start Date Stop Date ? ? Active ? Not available Plus 29 mg iron-1 mg tablet Active ? Not available Take 1 tablet every day by oral route. Problems No Known Problems Procedures Date Name Performed by ? 07/16/2014 OB Ultrasound First Screen (10.4-13.9 We eks) Information not available 07/30/2014 Ultrasound, Survey, OB Mater nal Information not available Eval 08/27/2014 Ultrasound, OB Limited Information not a vailable Notes: AGE 8 - LIP MASS EXCISION - NATALIYA IGN Results Lab Results Date Name Specimen Result Interpretation Description Value Range Status Address ? 10/22/2014 Glucose Tolerance ? No observation ? ? ? [facility] Test recorded. (Lab): [address], [place] Past Encounters None recorded. Social History Tobacco Smoking Status Never Smoker Vaccine List None recorded. Plan of Care Reminders Provider Appointments None recorded. ? ? Lab None recorded. ? ? Referral None recorded. ? ? Procedures None recorded. ? ? Surgeries None recorded. ? ? Imaging None recorded. ? ? Vitals 02/10/2015 09:15AM ANY 15 Height Weight BMI Blood Pressure
[2021-12-27 06:58] LABS: Basophils Percent Auto 0.4 % (0.2-1.2); Eosinophils Percent Auto 0.2 % (0-4.4); Hematocrit 37.5 % (37.0-47.0); Hemoglobin 12.3 g/dL (12.0-15.0); Immature Granulocyte Absolute 0.01 K/mm3 (0.00-0.031); Immature Granulocyte Percent A 0.2 % (0-0.5); Lymphocytes Absolute Auto 1.23 K/mm3 (0.9-3.2); Lymphocytes Percent Auto 22.3 % (18.3-44.2); Mean Corpuscular HGB Conc 32.8 g/dl (32-36); Mean Corpuscular Hemoglobin 28.5 pg (26-34); Mean Platelet Volume 12.8 fl (7.4-10.4); Monocytes Absolute Auto 0.4 K/mm3 (0.1-0.6); Monocytes Percent Auto 7.6 % (2.6-8.5); Neutrophils Absolute Auto 3.8 K/mm3 (1.3-6.7); Neutrophils Percent Auto 69.3 % (45.5-73.1); Platelet Count Result 127 k/mm3 (150-375); Red Blood Count 4.31 M/mm3 (4.2-5.4); Red Cell Distribution Width 14.1 % (11.5-14.5); White Blood Count 5.5 K/mm3 (4.5-10.0)
[2021-12-27] MEDS: LACTATED RINGERS 1,000 ML 125 ML IV CONT ×3 (07:10→12:55)
[2021-12-27] MEDS: OXYTOCIN 30 UNITS/NS 500 ML 30 UNITS/500 ML BAG IV CONT (07:10)
--- NOTE | 2021-12-27 07:43 | WPDANESEPP ---
Anes - Eval Pre Procedure Procedure: labor epidural Date/Time: 12/27/21 07:43 Surgeon: vinnie Pre Op Diagnosis: Induction of Labor Patient Data Age: 26 Gender: F Height: 1.5 m Weight: 55 kg Last Vital Signs Pulse 64 12/27/21 07:30 BP 96/56 L 12/27/21 07:30 Allergies Allergy/AdvReac Type Severity Reaction Status Date / Time No Known Allergies Allergy Verified 07/22/21 11:52 Home Medications Medication Instructions Recorded Confirmed Type vit no.95-ferrous 1 tablet PO DAILY 09/29/21 09/29/21 History fumarate 28 mg-folic acid 800 mcg tablet () ursodiol 500 mg tablet 500 mg PO BID 09/29/21 09/29/21 History nitrofurantoin 100 mg PO Q12H 7 days #14 caps 09/30/21 Rx monohydrate/macrocrystals 100 mg capsule (Macrobid) Laboratory Tests 12/27/21 12/27/21 12/27/21 06:48 06:48 06:48 WBC 5.5 K/mm3 K/mm3 (4.5-10.0) RBC 4.31 M/mm3 M/mm3 (4.2-5.4) Hgb 12.3 g/dL g/dL (12.0-15.0) Hct 37.5 % % (37.0-47.0) MCV 87.0 fl fl (80-100) MCH 28.5 pg pg (26-34) MCHC 32.8 g/dl g/dl (32-36) RDW 14.1 % % (11.5-14.5) Plt Count 127 k/mm3 L k/mm3 (150-375) MPV 12.8 fl H fl (7.4-10.4) Immature Gran % (Auto) 0.2 % % (0-0.5) Neut % (Auto) 69.3 % % (45.5-73.1) Lymph % (Auto) 22.3 % % (18.3-44.2) [place] % (Auto) 7.6 % % (2.6-8.5) Eos % (Auto) 0.2 % % (0-4.4) Baso % (Auto) 0.4 % % (0.2-1.2) Lymph # (Auto) 1.23 K/mm3 K/mm3 (0.9-3.2) [place] # (Auto) 0.4 K/mm3 K/mm3 (0.1-0.6) Eos # (Auto) 0.0 K/mm3 K/mm3 (0-0.3) Baso # (Auto) 0.0 K/mm3 K/mm3 (0.0-0.1) Abs Immat Gran (auto) 0.01 K/mm3 K/mm3 (0.00-0.031) Absolute Neuts (auto) 3.8 K/mm3 K/mm3 (1.3-6.7) Absolute Nucleated RBC 0.0 K/mm3 K/mm3 (0.0-0.012) Nucleated RBC % 0.0 % % (0.0-0.2) RPR Pending Blood Type A Positive Antibody Screen Pending Patient hx anesthesia problems: none Family hx anesthesia problems: none Results Review: All pre-operative results and documents have been reviewed as part of the pre-operative evaluation. [facility] Past Medical History Medical History Healthy female adult Surgical History Surgical History H/O dilation and curettage Family History Family History (Updated 12/20/21 @ 12:49 by Genie Granados RN) Grandparent Diabetes mellitus High cholesterol Mother Diabetes mellitus High cholesterol Social History Social History Smoking status: Never smoker Alcohol intake: never Substance use: never Substance use type: does not use Spiritual care concerns: No Exam Day of Procedure 12/27/21 07:43
--- NOTE | 2021-12-27 07:45 | WPDHPUPDATE1 ---
History and Physical Update Update Date/Time: 12/27/21 07:45 elective induction of labor. AROM - clear, /- reassuring status History and Physical has been reviewed, including an updated exam of the patient. There are NO changes in the patient's condition. Risks, benefits, and alternatives have been discussed and questions answered. Patient agrees to proceed with procedure.
--- NOTE | 2021-12-27 10:39 | P.PNAN_ITS ---
Anes - Eval Final PreProcedure Day of Procedure 12/27/21 10:39 Patient weight: normal Neurological: alert and oriented ASA classification: II Emergent: no Anesthetic plan: proceed Anesthesia type and monitoring: regional epidural and standard monitoring Results Review: All pre-operative results and documents have been reviewed as part of the pre- operative evaluation. Informed Consent: The patient's anesthetic plan and its attendant risks and benefits were discussed with the patient/family/POA. Questions were solicited and answers provided to the satisfaction of the patient/family/POA.
--- NOTE | 2021-12-27 13:21 | PM.OBPRVD ---
OB - Delivery Note Procedure Procedure: Induction method: AROM and Per Pitocin Protocol Delivery monitor: External FHT and External Uterine Route of delivery: Episiotomy description: None Laceration Description: None Specimen: No Quantitative Blood Loss (ml): 225 Anesthesia type: Epidural Baby Date of : 12/27/21 Time of : 01:13 Weeks of gestation at delivery: 39 Weight (pounds): 6 Weight (ounces): 0 Placenta delivery description: Spontaneous Cord Vessel Description: 3 Vessels score one minute: 9 score five minutes: 9
[2021-12-27] MEDS: OXYTOCIN 30 UNITS/NS 500 ML 30 UNITS/500 ML BAG 125 UNITS IV CONT (13:41)
--- NOTE | 2021-12-27 16:40 | OBPPTRN ---
1552 Patient transferred to post room #282 via W/C. Oriented to unit, room, information board, rooming in, admission packet and security measures. Patient verbalizes understanding.
[2021-12-27] MEDS: IBUPROFEN 600 MG TABLET PO (23:53)
[2021-12-28 00:05] VITALS: BP 90/61; PULSE 66; RESP 18; TEMP 36.7; O2SAT 99
[2021-12-28 04:20] VITALS: BP 87/56; PULSE 61; RESP 16; TEMP 36.9; O2SAT 97
[2021-12-28 05:12] LABS: Hematocrit 33.8 % (37.0-47.0); Hemoglobin 11.1 g/dL (12.0-15.0)
[2021-12-28 06:15] LABS: Rapid Plasma Reagin Non-Reactive (NonReactive)
--- NOTE | 2021-12-28 07:39 | PM.OBDSVD ---
DS: Admitting Diagnosis Discharge Date 12/28/21 Admitting Diagnosis cholestasis OB - DS: Summary OB Procedures : None OB Procedures Intrapartum: Spontaneous Vag Delivery OB Procedures: : None Time Spent with Patient Time attestation: Total time spent providing and/or coordinating discharge services: DS: Data Data Completed and Pending Labs on day of discharge: Labs from last 24 hours 12/28/21 12/27/21 12/27/21 04:32 06:48 06:48 Hgb 11.1 L Hct 33.8 L RPR Non-reactive Antibody Screen Negative Discharge Plan Discharge Discharging Clinician: Carol Carbajal Patient Disposition: Home, Self-Care Activity: pelvic rest Diet: regular Patient Instructions: Antibiotic Form Stand Alone Forms: General Discharge Information Follow-up/Referrals: Carol Carbajal MD [Physician] - Date of admission: 12/27/21 06:09 Primary Care Provider: UNKNOWN,DOCTOR Admitting Provider: Carol Carbajal Attending physician on admission: Carol Carbajal Condition: Stable
--- NOTE | 2021-12-28 07:41 | PM.OBPNVD ---
OB - PN: Subj Subjective Date/time seen: 12/28/21 07:41 Patient comments: no complaints, pain well controlled, incisional pain, tolerating diet and flatus present OB - PN: Obj Data Labs CBC & Chem 7: 12/28/21 04:32 Labs: Laboratory Results - last 24 hr 12/27/21 12/27/21 12/28/21 06:48 06:48 04:32 Hgb 11.1 L Hct 33.8 L RPR Non-reactive Antibody Screen Negative OB - PN A/P Plan day: 1 Plan: routine care Comments: No problems, routine care, to d/c Time Spent With Patient Time: Total time spent is greater than 50% in coordination of care (as documented) at patient's floor/unit and/or counseling patient: Exam Const: General: comfortable, no acute distress and alert Resp: Effort & Inspection: normal respiratory effort Auscultation: no crackles, no rales and no rhonchi Cardio: Rate: regular rate Heart sounds: no click, no murmurs and no rubs GI: Inspection: non-distended GI Palp: No Tenderness to palpation present (GI) Auscultation: normal bowel sounds Other: Incision - CDI Extrem: General: normal to inspection, no pedal edema and no calf tenderness
[2021-12-28 07:55] VITALS: BP 96/69; PULSE 66; RESP 16; TEMP 36.4; O2SAT 99
[2021-12-28] MEDS: DOCUSATE SODIUM 100 MG CAPSULE PO (10:11)
[2021-12-28] MEDS: IBUPROFEN 600 MG TABLET PO ×2 (10:11→16:21)
[2021-12-28 12:03] VITALS: BP 86/57; PULSE 66; RESP 18; TEMP 36.3; O2SAT 99
--- NOTE | 2021-12-28 19:11 | PC.NURSE ---
2850 Patient viewed the discharge video Mother & Baby Care, The First Two Weeks . Patient was given the opportunity and encouraged to ask questions. Patient verbalized understanding of information shared and has been given the mother/baby guide for home reference.
[2021-12-30 08:38] VITALS: BP 96/51; PULSE 61; RESP 18; TEMP 36.8; O2SAT 99
== END 2021-12-28 16:46 | disposition home or self-care (01) | DRG 560 ==
LOC: ANHLDR 06:15 → ANHOB2 15:54
PROVIDERS: Admitting Provider Obstetrics & Gynecology; Visit Provider Obstetrics & Gynecology
DX: O26.62 Liver and biliary tract disorders in childbirth (principal); K83.1 Obstruction of bile duct; Z3A.37 37 weeks gestation of pregnancy; Z37.0 Single live birth
CPT/HCPCS: 36415; 85014; 85018; 85025; 86592; 86850; 86900; 86901; A9270; J2590; J2795; J7120

== ENCOUNTER 2022-05-20 13:08 | Outpatient (CLI) | payer OTHER, SELFPAY ==
[2022-05-20 13:50] LABS: Beta HCG Quantitative < 2.39 mIU/ML
== END 2022-05-20 13:09 | disposition home or self-care (01) ==
LOC: ANHLAB 13:11
PROVIDERS: Visit Provider Nurse Practitioner
DX: O20.0 Threatened abortion (principal); Z3A.00 Weeks of gestation of pregnancy not specified
CPT/HCPCS: 36415; 84702

== ENCOUNTER 2024-07-04 21:20 | Emergency (ER) | payer OTHER, SELFPAY ==
--- NOTE | ~2024-07-04 | CT_ITS ---
CT of the Abdomen and Pelvis: Indication: Abdominal pain Technique: 2.5 mm axial scans were obtained through the abdomen and pelvis following intravenous adm inistration of 100 cc of Omnipaque 350. Dose reduction technique was used on this scan by utilizing a utomated exposure control and iterative reconstruction technique. The dose-length product (DLP) was 2 90.34 mGy-cm. Findings: Scans through the lung bases are unremarkable. The liver, spleen, pancreas, gallbladder, adrenals and kidneys are within normal limits. No evidence of aortic aneurysm. No lymphadenopathy. No bowel obstruction or bowel wall thickening. There is no evidence to suggest acute appendicitis. Images through the pelvis were performed. Urinary bladder unremarkable. No pelvic mass seen. No ascit es. Impression: No significant abnormalities seen. Reviewed, dictated and finalized at [facility]. L WEAVER Impression: No significant abnormalities seen.
[2024-07-04 21:23] VITALS: BP 105/74; PULSE 85; RESP 20; TEMP 36.6; O2SAT 100
[2024-07-05] VITALS (7 sets, daily range): BP systolic 93–116; BP diastolic 62–84; PULSE 64–89; RESP 14–22; O2SAT 94–100
[2024-07-05 00:48] LABS: BEDSIDEPREGUCG Negative (Negative)
[2024-07-05 00:48] LABS: Basophils Absolute Auto 0.1 K/mm3 (0.0-0.1); Basophils Percent Auto 0.5 % (0.2-1.2); Eosinophils Absolute Auto 0.1 K/mm3 (0-0.3); Eosinophils Percent Auto 0.8 % (0-4.4); Hematocrit 39.1 % (37.0-47.0); Immature Granulocyte Absolute 0.02 K/mm3 (0.00-0.031); Immature Granulocyte Percent A 0.2 % (0-0.5); Lymphocytes Absolute Auto 3.23 K/mm3 (0.9-3.2); Lymphocytes Percent Auto 32.5 % (18.3-44.2); Mean Corpuscular HGB Conc 35.8 g/dl (32-36); Mean Corpuscular Hemoglobin 31.2 pg (26-34); Mean Corpuscular Volume 87.1 fl (80-100); Mean Platelet Volume 11.4 fl (7.4-10.4); Monocytes Absolute Auto 0.6 K/mm3 (0.1-0.6); Monocytes Percent Auto 5.6 % (2.6-8.5); Neutrophils Percent Auto 60.4 % (45.5-73.1); Platelet Count Result 232 k/mm3 (150-375); Red Blood Count 4.49 M/mm3 (4.2-5.4); Red Cell Distribution Width 12.9 % (11.5-14.5); White Blood Count 9.9 K/mm3 (4.5-10.0)
[2024-07-05 00:57] LABS: Add Urine Microscopic? YES; Appearance Urine Turbid (Clear); Bacteria Urine None Seen /hpf; Bilirubin Urine Negative (Negative); Blood Urine Negative (Negative); Color Urine Yellow (Yellow); Glucose Urine UA Negative (Negative); Ketones Urine Negative (Negative); Leukocyte Esterase Ur Negative LEU/UL (Negative); Nitrate Urine Negative (Negative); Non Pathogenic Casts 0-2; Protein Urine Negative (Negative); RBC Urine 0-2 /hpf (0-2); Specific Grav Ur 1.019 (1.001-1.035); Squamous Epithelial Cell Urine None Seen /hpf (Few); WBC Urine 0-5 /hpf (0-3)
[2024-07-05 01:00] LABS: Alanine Aminotransferase 28 U/L (6-35); Albumin Level 4.5 g/dL (3.5-5.1); Alkaline Phosphatase 68 U/L (38-126); Anion Gap 15 mmol/L (4-12); Aspartate Amino Transferase 42 U/L (14-36); Blood Urea Nitrogen 16 mg/dL (7-17); Calcium 8.8 mg/dL (8.4-10.2); Carbon Dioxide 21 mmol/L (22-30); Chloride 102 mmol/L (98-107); Estimated Glomerular Filt Rate > 60; Glucose 99 mg/dL (65-110); Lipase 111 U/L (23-300); Potassium 4.4 mmol/L (3.4-5.0); Sodium 138 mmol/L (137-145)
[2024-07-05] MEDS: SODIUM CHLORIDE 0.9% IV 1,000 ML 999 ML IV CONT (02:52)
[2024-07-05] MEDS: MORPHINE SULFATE (*CRX) 2 MG/ML INJ IV PUSH (02:52)
[2024-07-05] MEDS: ONDANSETRON INJ 4 MG/2 ML VIAL IV PUSH (02:52)
[2024-07-05 03:05] LABS: Influenza A QL RT-PCR Negative (Negative); Influenza B QL RT-PCR Negative (Negative); RSV RNA, RT-PCR Negative (Negative); SARS-CoV-2 RNA PCR Negative (Negative)
--- NOTE | 2024-07-05 03:09 | ED_ITS ---
HPI - Abdominal Pain General Chief Complaint: Abdominal Pain Stated Complaint: abd pain n/v Time Seen by Provider: 07/05/24 00:54 History of Present Illness HPI narrative: Patient is a 29-year-old female who presents to the emergency department this evening complaining of nausea, vomiting, diarrhea and lower abdominal pain. Patient states that the pain started Monday of last week it has persisted this whole time. Patient states that throughout the past few days she has noticed that the pain has gotten worse. She also states that she has not been able to keep down any food or fluids due to the nausea/vomiting. Denies any similar episodes in the past denies any previous history of abdominal surgeries. No additional symptoms or concerns at this time. Related Data Allergies Allergy/AdvReac Type Severity Reaction Status Date / Time No Known Allergies Allergy Verified 07/04/24 21:34 Review of Systems 2 Review of Systems: All systems are reviewed and are negative unless stated otherwise in the HPI. [facility] Past Medical History Medical History Healthy female adult Surgical History Surgical History H/O dilation and curettage Family History Family History Grandparent Diabetes mellitus High cholesterol Mother Diabetes mellitus High cholesterol Social History Social History Smoking status: Never smoker Alcohol intake: never Substance use: never Substance use type: does not use Living arrangements: with family Spiritual care concerns: No Exam 2 Narrative: General: Alert, awake, afebrile, in no acute distress. HEENT: PERRL, no rhinorrhea, no post nasal drip, oropharynx clear. Neck: Trachea midline, no JVD, no lymphadenopathy. Cardiovascular: Regular rate and rhythm, no murmurs, rubs or gallops, no peripheral edema. Respiratory: Clear to auscultation bilaterally, no tachypnea, no wheezing, no rhonchi, no rubs, no respiratory distress. Abdomen: Soft, tenderness to palpation over the bilateral lower quadrant, nondistended, no rebound, no guarding, no peritoneal signs. Musculoskeletal: No joint swelling or deformity, normal muscle tone. Skin: No rashes or petechia, no signs of infection. Psychiatric: Alert and oriented, normal behavior and judgment for situation. Neurological: Alert and oriented to person, place, and time. Follows all commands. No focal deficits, speech is clear and fluent. Course Vital Signs Vital signs: Vital Signs Temperature 97.8 F 07/04/24 21:23 Pulse Rate 85 07/04/24 21:23 Respiratory Rate 20 07/04/24 21:23 Blood Pressure 105/74 07/04/24 21:23 Pulse Oximetry 100 07/04/24 21:23 Oxygen Delivery Room Air 07/04/24 21:23 Temperature 97.8 F 07/04/24 21:23 Pulse Rate 73 07/05/24 03:01 Respiratory Rate 18 07/05/24 03:01 Blood Pressure 102/65 07/05/24 03:01 Pulse Oximetry 97 07/05/24 03:01 Oxygen Delivery Room Air 07/04/24 21:23 MDM - Abdominal Pain MDM Narrative Medical decision making narrative: The patient was evaluated by myself in the emergency department. History is obtained from patient who is an independent historian and physical exam was performed. External medical records were reviewed at this time. IV was established and pertinent tests were ordered. Patient was administered 1 L IV fluid bolus with normal saline, 4 mg IV Zofran and 2 mg of IV morphine. Laboratory results obtained revealing no acute process. Urinalysis unremarkable. Viral swabs negative for COVID/influenza/RSV. Imaging studies obtained included CT abdomen and pelvis with IV contrast which was independently interpreted by me revealing no acute process, which is pending final radiology interpretation. Patient was informed of these findings at bedside and reassessed. Patient states that she is now pain-free and is resting comfortably. Also states that her nausea has completely resolved. Differential diagnosis considerations include appendicitis, gastroenteritis, cholecystitis, pancreatitis, ovarian torsion, ectopic . Comorbidities impacting this visit include none. I have evaluated and discussed social determinants of health with the patient that could potentially impact subsequent diagnosis and treatment plans. On repeat assessment of the patient, reevaluation revealed that the patient is doing well and is in no acute distress. Patient symptoms have improved since she arrived to our emergency department. Repeat vital signs were all reviewed and noted to be stable. Differential diagnosis and treatment plan were discussed with the patient at bedside. Patient agrees with discussion and after shared medical decision making agrees with discharge. All questions were answered to the patient's satisfaction. Patient will follow up with her PCP in 3-5 days. A script for Zofran was sent to patient's pharmacy to use as needed for nausea/vomiting. Patient was provided with strict return precautions and instructed to return to the emergency department if any new or worsening symptoms develop. The patient was discharged in stable condition. Lab Data 07/05/24 00:37 07/05/24 00:37 Labs: Lab Results 07/05/24 07/05/24 07/05/24 Range/Units 00:37 00:45 02:25 WBC 9.9 (4.5-10.0) K/mm3 RBC 4.49 (4.2-5.4) M/mm3 Hgb 14.0 (12.0-15.0) g/dL Hct 39.1 (37.0-47.0) % MCV 87.1 (80-100) fl MCH 31.2 (26-34) pg MCHC 35.8 (32-36) g/dl RDW 12.9 (11.5-14.5) % Plt Count 232 D (150-375) k/mm3 MPV 11.4 H (7.4-10.4) fl Immature Gran % (Auto) 0.2 (0-0.5) % Neut % (Auto) 60.4 (45.5-73.1) % Lymph % (Auto) 32.5 (18.3-44.2) % [place] % (Auto) 5.6 (2.6-8.5) % Eos % (Auto) 0.8 (0-4.4) % Baso % (Auto) 0.5 (0.2-1.2) % Lymph # (Auto) 3.23 H (0.9-3.2) K/mm3 [place] # (Auto) 0.6 (0.1-0.6) K/mm3 Eos # (Auto) 0.1 (0-0.3) K/mm3 Baso # (Auto) 0.1 (0.0-0.1) K/mm3 Abs Immat Gran (auto) 0.02 (0.00-0.031) K/mm3 Absolute Neuts (auto) 6.0 (1.3-6.7) K/mm3 Absolute Nucleated RBC 0.000 (0.0-0.012) K/mm3 Nucleated RBC % 0.0 (0.0-0.2) % Sodium 138 (137-145) mmol/L Potassium 4.4 (3.4-5.0) mmol/L Chloride 102 (98-107) mmol/L Carbon Dioxide 21 L (22-30) mmol/L Anion Gap 15 H (4-12) mmol/L BUN 16 (7-17) mg/dL Creatinine 0.77 (0.7-1.0) mg/dL Estim Creat Clear Calc Not Reportable Estimated GFR > 60 (59 - ) Glucose 99 (65-110) mg/dL Calcium 8.8 (8.4-10.2) mg/dL Total Bilirubin 1.0 (0.2-1.3) mg/dL AST 42 H (14-36) U/L ALT 28 (6-35) U/L Alkaline Phosphatase 68 (38-126) U/L Total Protein 8.0 (6.3-8.2) g/dL Albumin 4.5 (3.5-5.1) g/dL Lipase 111 (23-300) U/L Urine Color Yellow (Yellow) Urine Appearance Turbid H (Clear) Urine pH 7.0 (5.0-9.0) Ur Specific [place] 1.019 (1.001-1.035) Urine Protein Negative (Negative) mg/dL Urine Glucose (UA) Negative (Negative) mg/dL Urine Ketones Negative (Negative) mg/dL Ur Blood (Man) Negative (Negative) Urine Nitrate Negative (Negative) Urine Bilirubin Negative (Negative) Urine Urobilinogen 1.0 (<2.0) mg/dL Leukocyte Esterase Rfl Negative (Negative) RAFAEL/UL Urine RBC 0-2 (0-2) /hpf Urine WBC 0-5 (0-3) /hpf Ur Squamous Epith Cells None seen (Few) /hpf Urine Bacteria None seen /hpf Urine Casts 0-2 POC Urine HCG, Qual Negative (Negative) Influenza A (RT-PCR) Negative (Negative) Influenza B (RT-PCR) Negative (Negative) RSV (RT-PCR) Negative (Negative) SARS-CoV-2 RNA (RT-PCR) Negative (Negative) Discharge Plan Discharge Clinical Impression: Abdominal pain, Nausea vomiting and diarrhea Patient Disposition: Home, Self-Care Condition: Improved Instructions: Antibiotic Form, Acute Nausea and Vomiting (DC), Abdominal Pain (ED) Additional Instructions: Please follow-up with your family doctor within the next 3-5 days. Return to the emergency department if any new or worsening symptoms develop. Use the prescribed Zofran as needed for nausea/vomiting. Patient Language: Persian Prescriptions: New ondansetron 4 mg tablet,disintegrating 4 mg PO Q8H PRN (Reason: nausea and vomiting) Qty: 10 0RF Follow-up/Referrals: Rojelio Hightower MD [Physician] - 3 Days UNKNOWN,DOCTOR [Primary Care Provider] - 3 Days Time of Disposition: 03:45
== END 2024-07-05 04:52 | disposition home or self-care (01) ==
PROVIDERS: Emergency Provider Emergency Medicine
DX: R10.9 Unspecified abdominal pain (principal); R11.2 Nausea with vomiting, unspecified; R19.7 Diarrhea, unspecified; Z20.822 Contact with and (suspected) exposure to COVID-19
CPT/HCPCS: 36415; 74177; 80053; 81001; 81025; 83690; 85025; 87637; 96361; 96374; 96375; 99284; J2270; J2405; J7030; Q9967

== ENCOUNTER 2024-07-28 14:35 | Emergency (ER) | payer OTHER, SELFPAY ==
[2024-07-28 14:45] VITALS: BP 116/84; PULSE 109; RESP 16; TEMP 37.1; O2SAT 100
--- NOTE | 2024-07-28 14:57 | ED_ITS ---
HPI - URI/Sore Throat General Chief Complaint: Upper Respiratory Infection Stated Complaint: Bodyaches/Fever Time Seen by Provider: 07/28/24 15:10 Source: patient and RN notes reviewed Mode of arrival: ambulatory Limitations: no limitations History of Present Illness HPI Narrative: 29-year-old female presents with concern for body aches, runny nose, stuffy nose, cough, sore throat, fever. Reports symptoms started yesterday. Reports her daughter has similar symptoms she has been sleeping in the same bed. MD elicited complaint: fever and cough Related Data Home Medications ?Medication ?Instructions ?Recorded ?Confirmed ?Last Taken ?Type No Home Medications 07/28/24 Unknown History Allergies Allergy/AdvReac Type Severity Reaction Status Date / Time No Known Allergies Allergy Verified 07/28/24 14:45 Review of Systems Review of Systems: CONSTITUTIONAL: Reports malaise, fever. EYES: Denies visual changes, redness, or discharge. ENT: Reports rhinorrhea, congestion, otalgia and sore throat. CARDIOVASCULAR: Denies chest pain, palpitations, or edema. RESPIRATORY: Reports cough. Denies dyspnea. GASTROINTESTINAL: Denies abdominal pain, nausea, vomiting, diarrhea SKIN: Denies rash or itching. MUSCULOSKELETAL: Reports myalgia. NEUROLOGIC: Reports headache. All systems reviewed & are unremarkable except as noted in HPI and below PMFSH Past Medical History Medical History Healthy female adult Surgical History Surgical History H/O dilation and curettage Family History Family History Grandparent Diabetes mellitus High cholesterol Mother Diabetes mellitus High cholesterol Social History Social History Smoking status: Never smoker Alcohol intake: never Substance use: never Substance use type: does not use Living arrangements: with family Spiritual care concerns: No Comments At time of signature, agree with nursing past medical, surgical, social and family history. There is no relevant family history pertinent to the presenting complaint Exam Narrative: GENERAL: Nontoxic-appearing, well-nourished, and in no acute distress. HEAD: Normocephalic EYES: PERRLA, conjunctivae clear ENT: Nares clear. Mucous membranes moist. TM pearly julio with dull light reflex bilaterally; no tragal tenderness. Oropharynx not erythematous without lesions. Tonsils not enlarged and without exudate, no drooling, no hoarseness, no trismus, uvula midline. NECK: Supple. No lymphadenopathy CHEST: Clear to auscultation, breath sounds equal. No wheezing, rhonchi, rales, or stridor. No respiratory distress, speaks in full sentences. HEART: Regular rate and rhythm. No murmur heard. SKIN: Warm, dry, no rash. NEURO: Alert and oriented x3. PSYCH: Normal mood and affect Course Course Emergency Course: Patient is aware of diagnosis, understands and agrees to treatment plan. Anticipatory guidance given. Patient agrees to follow-up as directed and is aware of reasons to seek care at the emergency department. Portions of this record may have been created with voice recognition software Level of Care: Express Care Visit Vital Signs Vital signs: Vital Signs Temperature 98.7 F 07/28/24 14:45 Pulse Rate 109 H 07/28/24 14:45 Respiratory Rate 16 07/28/24 14:45 Blood Pressure 116/84 07/28/24 14:45 Pulse Oximetry 100 07/28/24 14:45 Oxygen Delivery Room Air 07/28/24 14:45 Temperature 98.7 F 07/28/24 14:45 Pulse Rate 109 H 07/28/24 14:45 Respiratory Rate 16 07/28/24 14:45 Blood Pressure 116/84 07/28/24 14:45 Pulse Oximetry 100 07/28/24 14:45 Oxygen Delivery Room Air 07/28/24 14:45 Reviewed. MDM - URI/Sore Throat MDM Narrative Medical decision making narrative: Differential diagnosis considered: Keys virus, strep pharyngitis, allergic rhinitis, upper respiratory tract infection, sinusitis, rhinosinusitis, nasopharyngitis. viral pharyngitis, otitis media, otitis externa, pneumonia, bronchitis, viral cough syndrome, viral syndrome, and influenza. Exam findings show no acute concerns or changes; patient is non-toxic appearing and is in no distress. Patient is appropriate for outpatient treatment and follow-up. Lab Data Attestation: I reviewed the patient's lab results. Critical Care Time Critical Care Time Critical Care Time: No Discharge Plan Discharge Clinical Impression: Influenza-like illness Patient Disposition: Home, Self-Care Condition: Stable Instructions: Viral Syndrome (ED) Additional Instructions: Your rapid COVID and flu tests are negative Your rapid strep swab was negative today at [facility]. A throat culture will be sent to the laboratory for further testing. If the test is positive, you will receive a phone call within 48 hours and an appropriate antibiotic will be initiated at that time. Your symptoms are likely due to a viral illness -Take strict precautions to prevent the spread of your virus. Be diligent about covering your cough (even when you are alone) and washing your hands frequently. -You may contagious until you have been symptom and/or fever free for 24 hours without fever reducing medicine -Alternate Ibuprofen and Tylenol for pain and fever relief (per package directio ns) -Drink plenty of fluid - drink fluid with electrolytes such as Gatorade or other oral re-hydration solution. Avoid caffeine, which can make dehydration worse. -Get plenty of rest to help your body heal. -Use a cool mist humidifier for chest and nasal congestion. -Eat RAW honey or use cough drops to ease throat discomfort -Do not smoke or expose children to secondhand smoke -Wash your hands frequently. -Please follow-up with your primary care doctor in the next 1-2 days if your symptoms do not improve. -If you have any worsening of symptoms or any other concerns please go to the ED immediately. -Please take medications as prescribed and continue taking your home medications as usual. Patient Language: French Prescriptions: No Action No Home Medications Follow-up/Referrals: PHYSICIAN,VENEER DRIER TAILER [Primary Care Provider] - Stand Alone Forms: Work/School Release IP Time of Disposition: 15:39
[2024-07-28 15:27] LABS: EDCOVIDSCREEN Negative (Negative); EDINFLUASCREEN Negative (Negative); EDINFLUBSCREEN Negative (Negative)
[2024-07-28 15:35] VITALS: PULSE 109; RESP 16; O2SAT 100
[2024-07-28 15:35] LABS: EDSTREPNEGPOS1 Negative (Negative)
== END 2024-07-28 15:48 | disposition home or self-care (01) ==
PROVIDERS: Emergency Provider Nurse Practitioner
DX: J11.1 Influenza due to unidentified influenza virus with other respiratory manifestations (principal); Z20.822 Contact with and (suspected) exposure to COVID-19
CPT/HCPCS: 87081; 87426; 87804; 87880; 99213; G0463

== ENCOUNTER 2024-08-07 15:46 | Emergency (ER) | payer OTHER, SELFPAY ==
--- NOTE | ~2024-08-07 | XR_ITS ---
EXAMINATION: XR chest 2V Exam Date/Time: 08/07/2024 16:17 FURNITURE POLISHER HISTORY: prod cough x 1 week non smoker Comparison: 09/17/2020, 05/21/2015. RESULT: Lines, tubes, and devices: None. Lungs and pleura: Low volumes with crowding, otherwise clear. Cardiomediastinal silhouette: Stable. Other: No acute osseous or upper abdominal finding. IMPRESSION: No acute cardiopulmonary process. Reviewed, dictated and finalized at location K. ITURE POLISHER
[2024-08-07 15:57] VITALS: BP 101/43; PULSE 61; RESP 16; TEMP 37; O2SAT 99
--- NOTE | 2024-08-07 16:09 | ED_ITS ---
HPI - URI/Sore Throat General Chief Complaint: Upper Respiratory Infection Stated Complaint: chest hurts, difficulty breathing Time Seen by Provider: 08/07/24 16:05 Source: patient Mode of arrival: ambulatory Limitations: no limitations History of Present Illness HPI Narrative: Judie is a 29-year-old female patient presenting to the clinic today with complaints shortness of breath and chest discomfort when taking a deep breath and coughing. States that her lungs burn when taking a deep breath and coughing. Was seen last week and had all the testing done was negative per patient. She denies any known fevers, chills, or body aches. Oxygenation is 99% on room air. Patient states she felt the same way last year when she had pneumonia in August. MD elicited complaint: cough Related Data Allergies Allergy/AdvReac Type Severity Reaction Status Date / Time No Known Allergies Allergy Verified 08/07/24 15:50 Review of Systems Review of Systems: Pertinent positives per HPI. Patient denies any fever, chills, rash, headache, visual changes, dizziness, palpitations, nausea, vomiting, diarrhea, constipation, abdominal pain, or any urinary issues. PMFSH Past Medical History Medical History Healthy female adult Surgical History Surgical History H/O dilation and curettage Family History Family History Grandparent Diabetes mellitus High cholesterol Mother Diabetes mellitus High cholesterol Social History Social History Smoking status: Never smoker Alcohol intake: never Substance use: never Substance use type: does not use Living arrangements: with family Spiritual care concerns: No Comments At the time of my signature, I reviewed and agree with the nursing past medical, surgical, social, and family history. There is no relevant family history pertinent to the patient complaint. Exam Narrative: General: Well-developed, well nourished, in no apparent distress Head: Normocephalic, atraumatic Eyes: Pupils equally round and reactive to light bilaterally, EOM intact, sclera and conjunctive clear, no discharge, lids normal Ears: TMs intact and clear, ear canals clear, no drainage, grossly hearing nor mal. Nose: Nares patent, no discharge, no inflammation, no sinus tenderness. Mouth: Oral pharynx without lesions or masses, good dentition, MMM. Neck: Supple, trachea midline, no enlargement of anterior or posterior cervical nodes, no thyroid masses or goiter palpable. Cardio: Regular rate and rhythm, s1 and s2 normal, no murmur appreciated. Resp: Lung sounds diminished in the bases otherwise clear, no rhonchi, rales, wheezing or rubs Course Course Emergency Course: Portions of this record may have been created with voice recognition software. Level of Care: Express Care Visit Vital Signs Vital signs: Vital Signs Temperature 37.0 C 08/07/24 15:57 Pulse Rate 61 08/07/24 15:57 Respiratory Rate 16 08/07/24 15:57 Blood Pressure 101/43 L 08/07/24 15:57 Pulse Oximetry 99 08/07/24 15:57 Oxygen Delivery Room Air 08/07/24 15:57 Temperature 37.0 C 08/07/24 15:57 Pulse Rate 61 08/07/24 15:57 Respiratory Rate 16 08/07/24 15:57 Blood Pressure 101/43 L 08/07/24 15:57 Pulse Oximetry 99 08/07/24 15:57 Oxygen Delivery Room Air 08/07/24 15:57 Vital signs reviewed MDM - URI/Sore Throat MDM Narrative Medical decision making narrative: At the time of visit patient is resting comfortably on the exam table. Patient appears to be nontoxic. Diagnostics: Chest x-rays negative for any acute cardiopulmonary process. Plan: I suspect patient has bronchitis. Prescription for Tessalon Perles, prednisone, and albuterol inhaler was sent to pharmacy. Supportive measures were discussed with the patient and they voiced understanding discharge instructions and agrees to treatment plan. Return precautions reviewed Differential Diagnosis Differential diagnosis: Likely upper respiratory infection, otitis media, s inusitis, viral infection, bronchitis, influenza, pharyngitis and other (COVID) Imaging Data Radiologist's impression: ITS Impressions Chest X-Ray 08/07/24 16:28 IMPRESSION: No acute cardiopulmonary process. Discharge Plan Discharge Clinical Impression: Bronchitis Patient Disposition: Home, Self-Care Condition: Stable Instructions: Antibiotic Form, Acute Bronchitis (ED) Additional Instructions: Chest x-rays negative for any acute cardiopulmonary process. Take prescription medications only as prescribed-albuterol inhaler, Tessalon Perles, and prednisone Increase fluids and stay well hydrated Tylenol/motrin for pain/fever Flonase and OTC antihistamines as directed Vicks vapor rub to open sinuses Sinus rinses for congestion Cepacol spray, cough drops, throat lozenges, warm tea with honey/lemon, gargle salt water to soothe throat BRAT diet for diarrhea Clear liquids x 24 hours then advance as tolerated for nausea/vomiting Go to the ED if you develop a worsening in your condition- high fever not controlled by Tylenol or Motrin, dehydration, weakness, lethargy, shortness of breath, or chest pain. Follow up with your PCP in 3-5 days if symptoms persist. Patient Language: Bulgarian Prescriptions: New benzonatate 200 mg capsule 200 mg PO TID 7 Days Qty: 21 0RF prednisone 20 mg tablet 40 mg PO DAILY 5 Days Qty: 10 0RF albuterol sulfate 90 mcg/actuation HFA aerosol inhaler 2 puff inhalation Q4-6H PRN (Reason: shortness of breath or wheezing) 30 Days Qty: 8.5 0RF Follow-up/Referrals: PHYSICIAN,REFORMATORY ATTENDANT [Primary Care Provider] - Time of Disposition: 16:35 Quality NIHSS Nursing Documentation ED NIHSS nursing documentation: reviewed/agree
== END 2024-08-07 16:41 | disposition home or self-care (01) ==
PROVIDERS: Emergency Provider Nurse Practitioner Family
DX: J40 Bronchitis, not specified as acute or chronic (principal)
CPT/HCPCS: 71046; 99213; G0463

== ENCOUNTER 2024-12-21 16:45 | Emergency (ER) | payer OTHER, SELFPAY ==
--- NOTE | ~2024-12-21 | CT_ITS ---
CT abdomen pelvis w con Ordering provider: Rosalino Ramirez MD History: 29 years Female with . Abdominal bloating, loose stools, early satiety . Comparison: None. Technique: CT abdomen and pelvis with IV and without oral contrast. Automated exposure control and it erative reconstruction technique were employed. Radiation reduction technique utilized. The dose-jazmine th product was 259.13 mGy-cm. 100 mL Omnipaque 350 was given IV. Findings: VISUALIZED LOWER CHEST: Dependent atelectatic changes. No UPPER ABDOMINAL ORGANS: Liver: Fat infiltration. Gallbladder: Normal. Spleen: Normal. Stomach/duodenum: Normal. Pancreas: Normal. Adrenals: Normal. Kidneys: Tiny cyst in the left kidney lower pole measuring 1 cm. PELVIC ORGANS: The bladder shows slight thickening of the anterior wall. Further evaluation advised. BOWEL AND MESENTERY: Colon: No evidence of diverticulitis. Normal appendix. Small Bowel: Normal. No obstruction. Peritoneum/mesentery: No free air or free fluid. No mesenteric lymphadenopathy. RETROPERITONEUM: Normal aorta. No retroperitoneal lymphadenopathy. MUSCULOSKELETAL: Superficial soft tissues: The superficial soft tissues are normal. Bones: Normal. Spine. IMPRESSION: 1. No evidence of appendicitis, diverticulitis or intestinal obstruction. 2. Fat infiltration of the liver. 3. Slight thickening of the urinary bladder wall. Further evaluation advised. Left renal cyst. Reviewed, dictated and finalized at location A.
[2024-12-21 17:15] VITALS: BP 97/62; PULSE 78; RESP 16; TEMP 36.6; O2SAT 100
--- OUTSIDE RECORDS SUMMARY | 2024-12-21 17:38 | XMS_ITS | Clinical Summary ---
Author Organization [facility] Address [address] [place] [id number] Care Team Providers Care Rehab Consultant Name Role Phone New Referring, Provider Primary Care Provider Un available Allergies No known active allergies Medications ondansetron 4 MG disintegrating tablet Take 1 tablet (4 mg total) by mouth every 8 (eight) hours as needed for Nausea. 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 Gender Identity Not on file Sexual Orientation Not on file Last Filed Vital Signs Vital Sign Reading Time Taken Comments Blood Pressure 114/89 08/24/2023 2:15 PM CDT Pulse 84 08/24/2023 2:15 PM CDT Temperature 36.7 C (98.1 F) 08/24/2023 11:47 AM CDT Respiratory Rate 16 08/24/2023 2:15 PM CDT Oxygen Saturation 98% 08/24/2023 2:15 PM CDT Inhaled Oxygen Concentration - - Weight 57.6 kg (127 lb) 08/24/2023 11:47 AM CDT Height 149.9 cm (4' 11) 08/24/2023 11:47 AM CDT Body Mass Index 25.65 08/24/2023 11:47 AM CDT Plan of Treatment Health Maintenance Due Date Last Done Comments Annual Physical 1999 Hepatitis C 2014 DTaP, Tdap and Td Vaccines ( 1 - Tdap) 2015 Hepatitis B Vaccines (1 of 3 - 19+ 3-dose series) 2015 COVID-19 Vaccine (1 - 2023-2 5 season) 2024 Cervical Cancer Screening Pa p Smear (Age 21 to 29) Every 3 Years 07/13/2025 07/13/2022, 06/01/2021, 06/01/2021 Cervical Cancer Screening 07/13/2025 HPV Vaccines Aged Out No longer eligi ble based on patient's age to complete this topic Meningococcal B Vaccine Aged Out No l onger eligible based on patient's age to complete this topic Meningococcal Vaccine Aged Out No miguelito amanda eligible based on patient's age to complete this topic Pneumococcal Vaccine: Pediatrics (0 to 5 Years) and At-Risk Patients (6 to 49 Years) Aged Out No longer eligible b ased on patient's age to complete this topic RSV Immunizations Under 20 Months Aged Out No longer eligible b ased on patient's age to complete this topic Insurance Care Teams Rehab Consultant Relationship Specialty Start Date End Date New Referring, Provider PCP - General UNKNOWN PHYSICIAN SPECIALTY 07/01/20
[2024-12-21 17:49] LABS: BEDSIDEPREGUCG Negative (Negative)
[2024-12-21 18:09] LABS: Hematocrit 41.7 % (37.0-47.0); Hemoglobin 13.8 g/dL (12.0-15.0); Immature Granulocyte Percent A 0.1 % (0-0.5); Lymphocytes Absolute Auto 2.72 K/mm3 (0.9-3.2); Mean Corpuscular HGB Conc 33.1 g/dl (32-36); Mean Corpuscular Hemoglobin 28.5 pg (26-34); Mean Corpuscular Volume 86.0 fl (80-100); Nucleated Red Blood Cells Absolute Auto 0.000 K/mm3 (0.0-0.012); Nucleated Red Blood Cells Perc 0.0 % (0.0-0.2); Platelet Count Result 264 k/mm3 (150-375); Red Blood Count 4.85 M/mm3 (4.2-5.4); White Blood Count 8.4 K/mm3 (4.5-10.0)
[2024-12-21 18:10] VITALS: BP 89/64; PULSE 69; RESP 15; O2SAT 99
[2024-12-21 18:26] LABS: Add Urine Microscopic? YES; Alanine Aminotransferase 27 U/L (6-35); Albumin Level 4.8 g/dL (3.5-5.1); Alkaline Phosphatase 59 U/L (38-126); Anion Gap 13 mmol/L (4-12); Appearance Urine Cloudy (Clear); Aspartate Amino Transferase 31 U/L (14-36); Bilirubin,Total 0.4 mg/dL (0.2-1.3); Blood Urea Nitrogen 12 mg/dL (7-17); Calcium 10.0 mg/dL (8.4-10.2); Carbon Dioxide 24 mmol/L (22-30); Chloride 102 mmol/L (98-107); Estimated Glomerular Filt Rate > 60; Glucose 96 mg/dL (65-110); Glucose Urine UA Negative (Negative); Leukocyte Esterase Ur Negative LEU/UL (Negative); Lipase 127 U/L (23-300); Nitrate Urine Negative (Negative); Non Pathogenic Casts 0-2; Potassium 4.1 mmol/L (3.4-5.0); Sodium 139 mmol/L (137-145); Specific Grav Ur 1.018 (1.001-1.035); Total Protein 8.4 g/dL (6.3-8.2)
--- NOTE | 2024-12-21 19:47 | ED.GENADULT ---
HPI - General Adult General Chief complaint: Abdominal Pain Stated complaint: abd. pain x1 week Time Seen by Provider: 12/21/24 17:10 History of Present Illness HPI narrative: This is a 21-year-old female presenting to ED with chief complaint of abdominal pain. Patient says for the last 1 week she has been having abdominal cramping and bloating. She has focal pain in the center of her abdomen. It is associated with abdominal bloating and early satiety. She has been having loose stools which is unusual for as she usually is constipated. She denies fevers chills chest pain difficulty breathing or urinary symptoms. No vaginal discharge. No concern for STDs and she is monogamous with her for Related Data Allergies Allergy/AdvReac Type Severity Reaction Status Date / Time No Known Allergies Allergy Verified 08/07/24 15:50 [facility] Past Medical History Medical History Healthy female adult Surgical History Surgical History H/O dilation and curettage Family History Family History Grandparent Diabetes mellitus High cholesterol Mother Diabetes mellitus High cholesterol Social History Social History Smoking status: Never smoker Alcohol intake: never Substance use: never Substance use type: does not use Living arrangements: with family Spiritual care concerns: No Exam Narrative: APPEARANCE: No apparent distress. Head: atraumatic. EYES: EOMI, NOSE: Atraumatic NECK: Trachea midline RESPIRATORY: No increased rate of breathing clear to auscultation CARDIOVASCULAR: RRR, ABDOMINAL: Abdomen is bloated with focal tenderness just superior to the umbilicus no guarding or rebound no CVA tenderness MUSCULOSKELETAl: No obvious deformities NEURO: Alert. Moving 4/4 extremities SKIN:: Warm, dry. Normal color PSYCHIATRIC: Normal affect Course Vital Signs Vital signs: Vital Signs Temperature 97.8 F 12/21/24 17:15 Pulse Rate 78 12/21/24 17:15 Respiratory Rate 16 12/21/24 17:15 Blood Pressure 97/62 L 12/21/24 17:15 Pulse Oximetry 100 12/21/24 17:15 Oxygen Delivery Room Air 12/21/24 17:15 Temperature 97.8 F 12/21/24 17:15 Pulse Rate 69 12/21/24 18:10 Respiratory Rate 15 12/21/24 18:10 Blood Pressure 89/64 L 12/21/24 18:10 Pulse Oximetry 99 12/21/24 18:10 Oxygen Delivery Room Air 12/21/24 17:15 Medical Decision Making MDM Narrative Medical decision making narrative: -Course: 29-year-old female presenting with 1 week of abdominal pain and bloating. Abdominal studies within normal limits. Urine not indicative infection. Patient signed out to the oncoming physician pending completion of her CT. Patient has received IV fluids Toradol and Pepcid for symptoms. -DDX includes but is not limited to: Enteritis, gastritis/peptic ulcer disease, gallbladder disease, appendicitis, colitis Vital Signs Vital Signs: Vital Signs Temperature 97.8 F 12/21/24 17:15 Pulse Rate 78 12/21/24 17:15 Respiratory Rate 16 12/21/24 17:15 Blood Pressure 97/62 L 12/21/24 17:15 Pulse Oximetry 100 12/21/24 17:15 Oxygen Delivery Room Air 12/21/24 17:15 Temperature 97.8 F 12/21/24 17:15 Pulse Rate 69 12/21/24 18:10 Respiratory Rate 15 12/21/24 18:10 Blood Pressure 89/64 L 12/21/24 18:10 Pulse Oximetry 99 12/21/24 18:10 Oxygen Delivery Room Air 12/21/24 17:15 Lab Data 12/21/24 17:58 12/21/24 17:58 Labs: Lab Results 12/21/24 12/21/24 Range/Units 17:34 17:58 WBC 8.4 (4.5-10.0) K/mm3 RBC 4.85 (4.2-5.4) M/mm3 Hgb 13.8 (12.0-15.0) g/dL Hct 41.7 (37.0-47.0) % MCV 86.0 (80-100) fl MCH 28.5 (26-34) pg MCHC 33.1 (32-36) g/dl RDW 12.9 (11.5-14.5) % Plt Count 264 (150-375) k/mm3 MPV 11.3 H (7.4-10.4) fl Immature Gran % (Auto) 0.1 (0-0.5) % Neut % (Auto) 59.0 (45.5-73.1) % Lymph % (Auto) 32.5 (18.3-44.2) % [place] % (Auto) 6.5 (2.6-8.5) % Eos % (Auto) 1.3 (0-4.4) % Baso % (Auto) 0.6 (0.2-1.2) % Lymph # (Auto) 2.72 (0.9-3.2) K/mm3 [place] # (Auto) 0.5 (0.1-0.6) K/mm3 Eos # (Auto) 0.1 (0-0.3) K/mm3 Baso # (Auto) 0.1 (0.0-0.1) K/mm3 Abs Immat Gran (auto) 0.01 (0.00-0.031) K/mm3 Absolute Neuts (auto) 4.9 (1.3-6.7) K/mm3 Absolute Nucleated RBC 0.000 (0.0-0.012) K/mm3 Nucleated RBC % 0.0 (0.0-0.2) % Sodium 139 (137-145) mmol/L Potassium 4.1 (3.4-5.0) mmol/L Chloride 102 (98-107) mmol/L Carbon Dioxide 24 (22-30) mmol/L Anion Gap 13 H (4-12) mmol/L BUN 12 (7-17) mg/dL Creatinine 0.86 (0.7-1.0) mg/dL Estim Creat Clear Calc Not Reportable Estimated GFR > 60 (59 - ) Glucose 96 (65-110) mg/dL Calcium 10.0 (8.4-10.2) mg/dL Total Bilirubin 0.4 (0.2-1.3) mg/dL AST 31 (14-36) U/L ALT 27 (6-35) U/L Alkaline Phosphatase 59 (38-126) U/L Total Protein 8.4 H (6.3-8.2) g/dL Albumin 4.8 (3.5-5.1) g/dL Lipase 127 (23-300) U/L Urine Color Yellow (Yellow) Urine Appearance Cloudy H (Clear) Urine pH 7.5 (5.0-9.0) Ur Specific [place] 1.018 (1.001-1.035) Urine Protein Negative (Negative) mg/dL Urine Glucose (UA) Negative (Negative) mg/dL Urine Ketones Negative (Negative) mg/dL Ur Blood (Man) Negative (Negative) Urine Nitrate Negative (Negative) Urine Bilirubin Negative (Negative) Urine Urobilinogen 1.0 (<2.0) mg/dL Leukocyte Esterase Rfl Negative (Negative) RAFAEL/UL Urine RBC 0-2 (0-2) /hpf Urine WBC 0-5 (0-3) /hpf Ur Squamous Epith Cells None seen (Few) /hpf Urine Bacteria None seen /hpf Urine Casts 0-2 POC Urine HCG, Qual Negative (Negative) Discharge Plan Discharge Clinical Impression: Abdominal pain Patient Disposition: Home Condition: Stable Instructions: Antibiotic Form, Abdominal Pain (ED) Additional Instructions: You were seen in the emergency department for abdominal pain. Please use Tylenol for pain. Please follow-up with your primary care physician for further management. If you develop severe abdominal pain fevers or intractable nausea vomiting please return ED for re-evaluation Patient Language: [place] Prescriptions: No Action benzonatate 200 mg capsule 200 mg PO TID 7 Days Qty: 21 0RF prednisone 20 mg tablet 40 mg PO DAILY 5 Days Qty: 10 0RF albuterol sulfate 90 mcg/actuation HFA aerosol inhaler 2 puff inhalation Q4-6H PRN (Reason: shortness of breath or wheezing) 30 Days Qty: 8.5 0RF Follow-up/Referrals: PHYSICIAN,COMPUTER APPLICATIONS INSTRUCTOR [Primary Care Provider] -
[2024-12-21] MEDS: FAMOTIDINE 20 MG/2 ML VIAL IV PUSH (20:09)
[2024-12-21] MEDS: SODIUM CHLORIDE 0.9% IV 1,000 ML 999 ML IV CONT (20:09)
== END 2024-12-21 20:43 | disposition home or self-care (01) ==
PROVIDERS: Emergency Medicine; Emergency Provider Emergency Medicine
DX: R10.9 Unspecified abdominal pain (principal); K76.0 Fatty (change of) liver, not elsewhere classified; N28.1 Cyst of kidney, acquired
CPT/HCPCS: 36415; 74177; 80053; 81001; 81025; 83690; 85025; 96361; 96374; 99284; J1885; J7030; Q9967